=== PATIENT | female | born 1990 | race Caucasian/White ===

== ENCOUNTER 2017-01-15 02:25 | Inpatient (IN) | payer BC, OTHER, MEDICAID ==
[2017-01-15] MEDS ORDERED: Nalbuphine 20 MG/1 ML Amp IVPUSH PRN (03:24)
[2017-01-15] MEDS ORDERED: Sodium Chloride 0.9% 10 ML Syringe FLUSH PRN (03:24)
[2017-01-15] MEDS ORDERED: Oxytocin/Lactated Ringers 10 UNIT/1,000 ML BAG IV SCH (03:30)
[2017-01-15] MEDS ORDERED: Ondansetron 4 MG/2 ML SDV IVPUSH PRN (04:06)
[2017-01-15] MEDS: Lactated Ringers 1,000 ML IV SCH ×4 (04:20→10:06)
[2017-01-15] MEDS ORDERED: fentaNYL 100 MCG/2 ML SDV ONE (04:36)
--- NOTE | 2017-01-15 05:15 | PCM.PREANE ---
Preanesthetic Assessment - Anesthesia/Transfusion/Family Hx Anesthesia History: Prior Anesthesia Without Reaction Family History of Anesthesia Reaction: No Transfusion History: No Prior Transfusion(s) - Review of Systems General: No Symptoms Pulmonary: No Symptoms Cardiovascular: No Symptoms 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: No Symptoms Neurological: No Symptoms Other: Reports: None - Physical Assessment Respiratory Rate: 16 Vital Signs: Last Vital Signs Temp 36.8 C 01/15/17 03:24 Pulse 74 01/15/17 03:24 Resp 16 01/15/17 03:24 BP 121/70 01/15/17 03:24 Pulse Ox Height: 1.6 m Weight: 63.82 kg ASA Class: 2 Mental Status: Alert & Oriented x3 Airway Class: Mallampati = 1 Dentition: Reports: Normal Dentition Thyro-Mental Finger Breadths: 3 Mouth Opening Finger Breadths: 3 ROM/Head Extension: Full Lungs: Clear to Auscultation, Normal Respiratory Effort Cardiovascular: Regular Rate, Regular Rhythm, No Murmurs - Lab Values: Laboratory Last Values WBC 18.83 K/mm3 (3.98-10.04) H 01/15/17 03:47 RBC 4.36 M/mm3 (3.98-5.22) 01/15/17 03:47 Hgb 12.8 gm/L (11.2-15.7) 01/15/17 03:47 Hct 36.8 % (34.1-44.9) 01/15/17 03:47 MCV 84.4 fl (79.4-94.8) 01/15/17 03:47 MCH 29.4 pg (25.6-32.2) 01/15/17 03:47 MCHC 34.8 g/dl (32.2-35.5) 01/15/17 03:47 RDW Std Deviation 43.4 fL (36.4-46.3) 01/15/17 03:47 Plt Count 153 K/mm3 (182-369) L 01/15/17 03:47 MPV 11.0 fl (9.4-12.3) 01/15/17 03:47 Neut % (Auto) 87.5 % (34.0-71.1) H 01/15/17 03:47 Lymph % (Auto) 6.2 % (19.3-51.7) L 01/15/17 03:47 [place] % (Auto) 5.8 % (4.7-12.5) 01/15/17 03:47 Eos % (Auto) 0.1 (0.7-5.8) L 01/15/17 03:47 Baso % (Auto) 0.1 % (0.1-1.2) 01/15/17 03:47 Neut # (Auto) 16.48 K/mm3 (1.56-6.13) H 01/15/17 03:47 Lymph # (Auto) 1.17 K/mm3 (1.18-3.74) L 01/15/17 03:47 [place] # (Auto) 1.09 K/mm3 (0.24-0.36) H 01/15/17 03:47 Eos # (Auto) 0.02 K/mm3 (0.04-0.36) L 01/15/17 03:47 Baso # (Auto) 0.01 K/mm3 (0.01-0.08) 01/15/17 03:47 Manual Slide Review Normal smear 01/15/17 03:47 - Allergies Allergies/Adverse Reactions: Allergies Allergy/AdvReac Type Severity Reaction Status Date / Time No Known Allergies Allergy Verified 05/02/15 09:49 - Anesthesia Plan Pre-Op Medication Ordered: None - Acknowledgements Anesthesia Type Planned: Epidural Pt an Appropriate Candidate for the Planned Anesthesia: Yes Alternatives and Risks of Anesthesia Discussed w Pt/Guardian: Yes Pt/Guardian Understands and Agrees with Anesthesia Plan: Yes PreAnesthesia Questionnaire - Past Health History Medical/Surgical History: Denies Medical/Surgical History 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 History: Reports: GERD 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: - Infectious Disease History Infectious Disease History: Reports: Chicken Pox - Past Surgical History HEENT Surgical History: Reports: Oral Surgery - SUBSTANCE USE Smoking Status *Q: Never Smoker Second Hand Smoke Exposure: No Recreational Drug Use History: No - HOME MEDS Home Medications: Home Meds Vits #93/Iron Fum/FA [ Formula Tablet] 1 tab PO DAILY 01/15/17 [History] - CURRENT (IN HOUSE) MEDS Current Meds: Current Medications Fentanyl/Bupivacaine HCl (Fentanyl/Bupivacaine/Ns 2 Mcg-0.125% 100 Ml) 100 ml EPIDUR ASDIRECTED ERNESTINE Lactated Ringer's (Ringers, Lactated) 1,000 mls @ 100 mls/hr IV ASDIRECTED ERNESTINE Last Admin: 01/15/17 04:20 Dose: 999 mls/hr Oxytocin/Lactated Ringer's (Pitocin In Lr 10 Units/1,000 Ml) 10 unit in 1,000 mls @ 500 mls/hr IV .CONTINUOUS ERNESTINE Nalbuphine HCl (Nubain) 10 mg IVPUSH Q2H PRN PRN Reason: Pain (moderate 4-6) Ondansetron HCl (Zofran) 4 mg IVPUSH Q4HR PRN PRN Reason: Nausea Last Admin: 01/15/17 04:20 Dose: 4 mg Sodium Chloride (Saline Flush) 10 ml FLUSH ASDIRECTED PRN PRN Reason: Keep Vein Open Discontinued Medications Fentanyl (Sublimaze) Confirm Administered Dose 100 mcg .ROUTE .STK-MED ONE Stop: 01/15/17 04:37 Last Admin: 01/15/17 05:01 Dose: 100 mcg
[2017-01-15] MEDS: Bupivacaine/fentaNYL/NS 100 ML Bag EPIDUR SCH ×2 (06:18→10:25)
--- NOTE | 2017-01-15 07:07 | PCM.LDHP ---
L&D History of Present Illness - General Date of Service: 01/15/17 Admit Problem/Dx: Patient Status Order with Admit Dx/Problem 01/15/17 03:24 Patient Status [ADT] Routine Admission Diagnosis/Problem Admission Diagnosis/Problem Normal labor Source of Information: Patient History Limitations: Reports: No Limitations - History of Present Illness Introduction:: 26 y/o a 39 0/7 wks who presents in labor. Was seen in clinic yesterday and found to be 3 cm. Today presented to L&D and on initial exam was 4-5 cm. Doing well now as she completed her epidural recently. 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: : 1 Para: 0 - Past Surgical History HEENT Surgical History: Reports: Myringotomy w Tube(s) Social & Family History - Family History Family Medical History: Noncontributory - Tobacco Use Smoking Status *Q: Never Smoker Second Hand Smoke Exposure: No - Alcohol Use Alcohol Use History: No - Recreational Drug Use Recreational Drug Use: No H&P Review of Systems - Review of Systems: Review Of Systems: See Below General: Reports: No Symptoms Pulmonary: Reports: No Symptoms Cardiovascular: Reports: No Symptoms 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: Reports: No Symptoms Genitourinary: Reports: No Symptoms Musculoskeletal: Reports: No Symptoms L&D Exam - Exam Exam: See Below - Vital Signs Vital Signs: Last Vital Signs Temp 36.8 C 01/15/17 03:24 Pulse 74 01/15/17 03:24 Resp 16 01/15/17 05:14 BP 121/70 01/15/17 03:24 Pulse Ox Weight: 63.82 kg - OB Specific Contraction Intensity: Moderate to Strong Movement: Active Heart Tones: Present Heart Tones per Min: 125 Heart Rate (FHR) Variability: Moderate (6-25 bmp) Presentation: Vertex - Grande Score Grande Score Cervix Position: Anterior Grande Score Consistency: Soft Grande Score Effacement: >80% Grande Score Dilation: > 5 cm Grande Score 's Station: +1, +2 Grande Score Total: 13 - Exam General: Alert, Oriented, Cooperative Lungs: Clear to Auscultation, Normal Respiratory Effort Cardiovascular: Regular Rate, Regular Rhythm GI/Abdominal Exam: Soft, Non-Tender Genitourinary: Normal external exam Extremities: Normal Inspection Skin: Warm, Dry, Intact - Patient Data Lab Results Last 24 hrs: Laboratory Results - last 24 hr 01/15/17 01/15/17 Range/Units 03:47 03:47 WBC 18.83 H (3.98-10.04) K/mm3 RBC 4.36 (3.98-5.22) M/mm3 Hgb 12.8 (11.2-15.7) gm/L Hct 36.8 (34.1-44.9) % MCV 84.4 (79.4-94.8) fl MCH 29.4 (25.6-32.2) pg MCHC 34.8 (32.2-35.5) g/dl RDW Std Deviation 43.4 (36.4-46.3) fL Plt Count 153 L (182-369) K/mm3 MPV 11.0 (9.4-12.3) fl Neut % (Auto) 87.5 H (34.0-71.1) % Lymph % (Auto) 6.2 L (19.3-51.7) % [place] % (Auto) 5.8 (4.7-12.5) % Eos % (Auto) 0.1 L (0.7-5.8) Baso % (Auto) 0.1 (0.1-1.2) % Neut # (Auto) 16.48 H (1.56-6.13) K/mm3 Lymph # (Auto) 1.17 L (1.18-3.74) K/mm3 [place] # (Auto) 1.09 H (0.24-0.36) K/mm3 Eos # (Auto) 0.02 L (0.04-0.36) K/mm3 Baso # (Auto) 0.01 (0.01-0.08) K/mm3 Manual Slide Review Normal smear Blood Type A POSITIVE Gel Antibody Screen Negative Result Diagrams: 01/15/17 03:47 - Problem List (1) 39 weeks gestation of SNOMED Code(s): 48526937 ICD Code: Z3A.39 - 39 WEEKS GESTATION OF Status: Acute Current Visit: Yes (2) Normal labor SNOMED Code(s): 77600892 ICD Code: O80 - ENCOUNTER FOR FULL-TERM UNCOMPLICATED DELIVERY; Z37.9 - OUTCOME OF DELIVERY, UNSPECIFIED Status: Acute Current Visit: Yes Problem List Initiated/Reviewed/Updated: Yes Orders Last 24hrs: Active Orders 24 hr Category Date Time Status Patient Status [ADT] Routine ADT 01/15/17 03:24 Active Activity as Tolerated [RC] PFP Care 01/15/17 03:24 Active Communication Order [RC] ASDIRECTED Care 01/15/17 03:24 Active Heart Tones [RC] ASDIRECTED Care 01/15/17 03:24 Active Notify Provider [RC] PFP Care 01/15/17 03:24 Active Notify Provider [RC] PRN Care 01/15/17 03:24 Active Peripheral IV Care [RC] . DIRECTED Care 01/15/17 03:24 Active Pump Management, Intrathecal [RC] ASDIRECTED Care 01/15/17 03:24 Active Urinary Catheter Assessment [RC] ASDIRECTED Care 01/15/17 03:24 Active Vital Signs [RC] PER UNIT ROUTINE Care 01/15/17 03:24 Active Regular Diet [DIET] Diet 01/15/17 Breakfast Active PATIENT RETYPE [BBK] Routine Lab 01/15/17 03:47 Results TYPE AND SCREEN [BBK] Routine Lab 01/15/17 03:47 Results Bupivacaine/fentaNYL/NS [fentaNYL/Bupivacaine/NS 2 MCG- Med 01/15/17 05:15 Active 0.125% 100 ML] 100 ml EPIDUR ASDIRECTED Lactated Ringers [Ringers, Lactated] 1,000 ml Med 01/15/17 03:30 Active IV ASDIRECTED Nalbuphine [Nubain] Med 01/15/17 03:24 Active 10 mg IVPUSH Q2H PRN Ondansetron [Zofran] Med 01/15/17 04:06 Active 4 mg IVPUSH Q4HR PRN Oxytocin/Lactated Ringers [Pitocin in LR 10 Units/1,000 Med 01/15/17 03:30 Active ML] 10 unit in 1,000 ml IV .CONTINUOUS Sodium Chloride 0.9% [Saline Flush] Med 01/15/17 03:24 Active 10 ml FLUSH ASDIRECTED PRN Electronic Heart Tones Ext w TOCO [WOMSER] Oth 01/15/17 03:24 Ordered Routine Electronic Heart Tones Internal [WOMSER] Per Unit Oth 01/15/17 03:24 Ordered Routine Peripheral IV Insertion Adult [OM.PC] Routine Oth 01/15/17 03:24 Ordered Resuscitation Status Routine Resus Stat 01/15/17 03:24 Ordered Medication Orders Fentanyl/Bupivacaine HCl (Fentanyl/Bupivacaine/Ns 2 Mcg-0.125% 100 Ml) 100 ml EPIDUR ASDIRECTED ERNESTINE Last Admin: 01/15/17 06:18 Dose: 100 ml Lactated Ringer's (Ringers, Lactated) 1,000 mls @ 100 mls/hr IV ASDIRECTED ERNESTINE Last Admin: 01/15/17 06:18 Dose: 500 mls/hr Infusion: 01/15/17 06:17 Dose: 999 mls/hr Admin: 01/15/17 05:16 Dose: 999 mls/hr Infusion: 01/15/17 05:16 Dose: 999 mls/hr Admin: 01/15/17 04:20 Dose: 999 mls/hr Oxytocin/Lactated Ringer's (Pitocin In Lr 10 Units/1,000 Ml) 10 unit in 1,000 mls @ 500 mls/hr IV .CONTINUOUS ERNESTINE Nalbuphine HCl (Nubain) 10 mg IVPUSH Q2H PRN PRN Reason: Pain (moderate 4-6) Ondansetron HCl (Zofran) 4 mg IVPUSH Q4HR PRN PRN Reason: Nausea Last Admin: 01/15/17 04:20 Dose: 4 mg Sodium Chloride (Saline Flush) 10 ml FLUSH ASDIRECTED PRN PRN Reason: Keep Vein Open Assessment/Plan Comment:: 26 y/o at 39 0/7 wks presents for labor * CBC and T&S already ordered * Epidural in place * GBS negative, no need for antibiotics * AROM performed with release of clear fluid * Anticipate Lisa Nickerson MD
[2017-01-15] MEDS ORDERED: Ampicillin 2 GM in Sodium Chloride 0.9% 100 ML IV ONE (10:31)
[2017-01-15] MEDS ORDERED: Acetaminophen 325 MG Tab PO ONE (10:39)
[2017-01-15] MEDS: GENTAMICIN IV ONE (11:10)
[2017-01-15] MEDS: SODIUM CHLORIDE 0.9% IV ONE (11:10)
--- NOTE | 2017-01-15 11:41 | PCM.SN ---
- Free Text/Narrative Note: 1030 Received call from nursing that patient complete and also with temperature of 100.4. This increased on next assessment after 20 minutes to greater than 101.0. Ampicillin and Gentamicin started for presumed chorioamnionitis as FHR baseline also with up shift from 125 to 155. Lisa Nickerson MD
--- NOTE | 2017-01-15 11:42 | PCM.DEL ---
L & D Note - General Info Date of Service: 01/15/17 - Delivery Note Labor: Spontaneous Delivery Outcome: Livebirth Delivery Method: Spontaneous Vaginal Delivery-Single Delivery Mode: Spontaneous Presentation: Right Occiput Anterior (FERNANDO) Nuchal Cord: Present (tight, not able to be reduced) Anesthesia Type: Epidural Amniotic Fluid Description: Meconium Stained (not noted until after delivery of infant) Episiotomy Type: None Laceration: Other (Patient with a hymenal band that did tear wtih delivery) Placenta: Intact, Spontaneous Cord: 3 Vessels Estimated Blood Loss: 250 Resuscitation Needed: Yes : Bulb Syringe, Stimulated, Warmed, [place] Used Score 1 min: 8 Score 5 min: 9 Delivery Comments (Free Text/Narrative):: Patient found to be complete and began pushing. With maternal pushing effort head delivered from an FERNANDO presentation. Tight nuchal cord not able to be reduced and so delivered through. With gentle downward traction the shoulders and body delivered. Infant placed on maternal abdomen. Cord clamped and cut. Cord blood obtained. Placenta allowed time to separate and expelled intact. Hymenal band which was present did tear with deliver. The free ends of this band were clamped, cut, and tied off with sutures of 2-0 vicryl. - Patient Data Vitals - Most Recent: Last Vital Signs Temp 36.8 C 01/15/17 03:24 Pulse 74 01/15/17 03:24 Resp 16 01/15/17 05:14 BP 121/70 01/15/17 03:24 Pulse Ox Weight - Most Recent: 63.82 kg Lab Results Last 24 Hours: Laboratory Results - last 24 hr 01/15/17 01/15/17 Range/Units 03:47 03:47 WBC 18.83 H (3.98-10.04) K/mm3 RBC 4.36 (3.98-5.22) M/mm3 Hgb 12.8 (11.2-15.7) gm/L Hct 36.8 (34.1-44.9) % MCV 84.4 (79.4-94.8) fl MCH 29.4 (25.6-32.2) pg MCHC 34.8 (32.2-35.5) g/dl RDW Std Deviation 43.4 (36.4-46.3) fL Plt Count 153 L (182-369) K/mm3 MPV 11.0 (9.4-12.3) fl Neut % (Auto) 87.5 H (34.0-71.1) % Lymph % (Auto) 6.2 L (19.3-51.7) % [place] % (Auto) 5.8 (4.7-12.5) % Eos % (Auto) 0.1 L (0.7-5.8) Baso % (Auto) 0.1 (0.1-1.2) % Neut # (Auto) 16.48 H (1.56-6.13) K/mm3 Lymph # (Auto) 1.17 L (1.18-3.74) K/mm3 [place] # (Auto) 1.09 H (0.24-0.36) K/mm3 Eos # (Auto) 0.02 L (0.04-0.36) K/mm3 Baso # (Auto) 0.01 (0.01-0.08) K/mm3 Manual Slide Review Normal smear Blood Type A POSITIVE Gel Antibody Screen Negative Med Orders - Current: Current Medications Fentanyl/Bupivacaine HCl (Fentanyl/Bupivacaine/Ns 2 Mcg-0.125% 100 Ml) 100 ml EPIDUR ASDIRECTED [facility] Last Admin: 01/15/17 06:18 Dose: 100 ml Lactated Ringer's (Ringers, Lactated) 1,000 mls @ 100 mls/hr IV ASDIRECTED ERNESTINE Last Admin: 01/15/17 10:06 Dose: 125 mls/hr Oxytocin/Lactated Ringer's (Pitocin In Lr 10 Units/1,000 Ml) 10 unit in 1,000 mls @ 500 mls/hr IV .CONTINUOUS [facility] Gentamicin Sulfate 315 mg/ (Sodium Chloride) 107.875 mls @ 107.875 mls/hr IV ONETIME ONE Stop: 01/15/17 11:59 Nalbuphine HCl (Nubain) 10 mg IVPUSH Q2H PRN PRN Reason: Pain (moderate 4-6) Ondansetron HCl (Zofran) 4 mg IVPUSH Q4HR PRN PRN Reason: Nausea Last Admin: 01/15/17 04:20 Dose: 4 mg Sodium Chloride (Saline Flush) 10 ml FLUSH ASDIRECTED PRN PRN Reason: Keep Vein Open Discontinued Medications Acetaminophen (Tylenol) 650 mg PO NOW ONE Stop: 01/15/17 10:40 Fentanyl (Sublimaze) Confirm Administered Dose 100 mcg .ROUTE .STK-MED ONE Stop: 01/15/17 04:37 Last Admin: 01/15/17 05:01 Dose: 100 mcg Ampicillin Sodium 2 gm/ Sodium (Chloride) 100 mls @ 200 mls/hr IV ONETIME ONE Stop: 01/15/17 11:00 - Problem List & Annotations (1) 39 weeks gestation of SNOMED Code(s): 55762079 Code(s): Z3A.39 - 39 WEEKS GESTATION OF Status: Acute Current Visit: Yes (2) Normal labor SNOMED Code(s): 20577247 Code(s): O80 - ENCOUNTER FOR FULL-TERM UNCOMPLICATED DELIVERY; Z37.9 - OUTCOME OF DELIVERY, UNSPECIFIED Status: Acute Current Visit: Yes (3) Chorioamnionitis SNOMED Code(s): 96210944 Code(s): O41.1290 - CHORIOAMNIONITIS, UNSP TRIMESTER, NOT APPLICABLE OR UNSP Status: Acute Current Visit: Yes Qualifiers: Fetus number: single or unspecified fetus Trimester: third trimester Qualified Code(s): O41.1230 - Chorioamnionitis, third trimester, not applicable or unspecified (4) Vaginal delivery SNOMED Code(s): 426775149 Code(s): O80 - ENCOUNTER FOR FULL-TERM UNCOMPLICATED DELIVERY Status: Acute Current Visit: Yes - Problem List Review Problem List Initiated/Reviewed/Updated: Yes - My Orders Last 24 Hours: My Active Orders 01/15/17 03:24 Activity as Tolerated [RC] PFP Communication Order [RC] ASDIRECTED Heart Tones [RC] ASDIRECTED Notify Provider [RC] PFP Notify Provider [RC] PRN Peripheral IV Care [RC] . DIRECTED Pump Management, Intrathecal [RC] ASDIRECTED Urinary Catheter Assessment [RC] ASDIRECTED Vital Signs [RC] PER UNIT ROUTINE Nalbuphine [Nubain] 10 mg IVPUSH Q2H PRN Sodium Chloride 0.9% [Saline Flush] 10 ml FLUSH ASDIRECTED PRN Electronic Heart Tones Ext w TOCO [WOMSER] Routine Electronic Heart Tones Internal [WOMSER] Per Unit Routine Peripheral IV Insertion Adult [OM.PC] Routine Resuscitation Status Routine 01/15/17 03:30 Lactated Ringers [Ringers, Lactated] 1,000 ml IV ASDIRECTED Oxytocin/Lactated Ringers [Pitocin in LR 10 Units/1,000 ML] 10 unit in 1,000 ml IV .CONTINUOUS 01/15/17 04:06 Ondansetron [Zofran] 4 mg IVPUSH Q4HR PRN 01/15/17 10:06 Patient Status [ADT] Routine 01/15/17 11:00 Gentamicin 315 mg Sodium Chloride 0.9% [Normal Saline] 100 ml IV ONETIME 01/15/17 Breakfast Regular Diet [DIET] - Assessment Assessment:: 26 y/o G1 now P1001 PPD#0 from at 39 0/7 wks gestation - Plan Plan:: * Chorioamnionitis diagnosed in labor - s/p Ampicillin and Gentamicin prior to delivery. No further antibiotics needed * Routine cares * Encourage breast feeding * Discharge home in 2 days Lisa Nickerson MD
[2017-01-15] MEDS ORDERED: Witch Hazel Medicated Pads 100/Jar TOP PRN (13:42)
[2017-01-15] MEDS ORDERED: Benzocaine/Menthol 20%-0.5% Spray 56 GM Canister TOP PRN (13:42)
[2017-01-15] MEDS ORDERED: Docusate Sodium 100 MG Cap PO PRN (13:42)
[2017-01-15] MEDS ORDERED: Acetaminophen 325 MG Tab PO PRN (13:42)
[2017-01-15] MEDS ORDERED: Lanolin 100% Cream 7 GM Tube TOP PRN (13:42)
--- NOTE | 2017-01-15 15:20 | PCM48HPAN ---
Post Anesthesia Note - EVALUATION WITHIN 48HRS OF ANESTHETIC Vital Signs in Normal Range: Yes Patient Participated in Evaluation: Yes Respiratory Function Stable: Yes Airway Patent: Yes Cardiovascular Function Stable: Yes Hydration Status Stable: Yes Pain Control Satisfactory: Yes Nausea and Vomiting Control Satisfactory: Yes Mental Status Recovered: Yes - COMMENTS/OBSERVATIONS Free Text/Narrative:: Danii has been up ambulating. She denies headache, backpain, and/or numbness/ tingling in her legs. No further questions at this time. No complications noted.
[2017-01-15] MEDS: Ibuprofen 600 MG Tab PO PRN (19:16)
[2017-01-15] MEDS ORDERED: Bupivacaine 0.25% 10 ML SDV ONE (22:22)
[2017-01-16] MEDS: Ibuprofen 600 MG Tab PO PRN ×3 (01:33→20:20)
--- NOTE | 2017-01-16 09:47 | PCM.SN ---
- Free Text/Narrative Note: Post Progress Note PPD # 1 Subjective: Doing well overall. Ambulating without difficulty. Lochia minimal. Voiding without difficulty. Tolerating regular diet without any nausea or vomiting. Pain controlled with oral medications. Breast feeding with minimal difficulty. Denies any fevers or chills Objective: Vitals: Last Vital Signs Temp 36.3 C 01/16/17 04:13 Pulse 80 01/16/17 04:13 Resp 14 01/16/17 04:13 BP 123/69 01/16/17 04:13 Pulse Ox 100 01/16/17 04:13 Physical Exam General: Alert and oriented, no acute distress Lungs: Clear to auscultation bilaterally Heart: Regular rate and rhythm Abdomen: Soft, minimal appropriate tenderness, non-distended, fundus midline, nontender, and below the umbilicus Extremities: No edema ASSESSMENT: 26-year-old female G 1 P 1001 s/p normal vaginal delivery PPD #1, complicated by chorioamnionitis PLAN: Doing well Breast feeding with minimal difficulty. Assist as needed Lochia minimal. Continue to monitor for appropriate lochia. Continue routine care Continue to monitor vitals for signs of endometritis Anticipate discharge home tomorrow Joaquin Means MD 9:47 AM 01/16/2017
[2017-01-16] MEDS: GENTAMICIN IV ONE (12:57)
[2017-01-16] MEDS: SODIUM CHLORIDE 0.9% IV ONE (12:57)
--- NOTE | 2017-01-17 08:58 | PCM.SN ---
- Free Text/Narrative Note: Post Progress Note PPD # 2 Subjective: Doing well overall. Ambulating without difficulty. Lochia minimal and decreasing from previous day. Voiding without difficulty. Tolerating regular diet. Pain controlled with oral medications. Breast feeding with minimal difficulty. Denies any fevers or chills. Objective: Vitals: Last Vital Signs Temp 37.1 C 01/16/17 20:27 Pulse 74 01/17/17 04:10 Resp 13 01/17/17 04:10 BP 108/55 L 01/17/17 04:10 Pulse Ox 98 01/17/17 04:10 Physical Exam General: Alert and oriented, no acute distress Lungs: Clear to auscultation bilaterally Heart: Regular rate and rhythm Abdomen: Soft, minimal appropriate tenderness, non-distended, fundus midline, nontender, and below the umbilicus Extremities: No edema ASSESSMENT: 26-year-old female G 1 P 1001 s/p normal vaginal delivery PPD #2, complicated by chorioamnionitis PLAN: Doing well Breast feeding with minimal difficulty. Assist as needed Lochia minimal. Continue to monitor for appropriate lochia. Continue routine care Continue to monitor closely for signs of endometritis including fundal tenderness and fevers Anticipate discharge home today after baby is discharged Joaquin Means MD 8:57 AM 01/17/2017
--- NOTE | 2017-01-17 09:04 | PCM.DCSUM1 ---
Discharge Summary - Hospital Course Free Text/Narrative:: Patient found to be complete and began pushing. With maternal pushing effort head delivered from an FERNANDO presentation. Tight nuchal cord not able to be reduced and so delivered through. With gentle downward traction the shoulders and body delivered. Infant placed on maternal abdomen. Cord clamped and cut. Cord blood obtained. Placenta allowed time to separate and expelled intact. Hymenal band which was present did tear with deliver. The free ends of this band were clamped, cut, and tied off with sutures of 2-0 vicryl. HPI Initial Comments: Patient found to be complete and began pushing. With maternal pushing effort head delivered from an FERNANDO presentation. Tight nuchal cord not able to be reduced and so delivered through. With gentle downward traction the shoulders and body delivered. Infant placed on maternal abdomen. Cord clamped and cut. Cord blood obtained. Placenta allowed time to separate and expelled intact. Hymenal band which was present did tear with deliver. The free ends of this band were clamped, cut, and tied off with sutures of 2-0 vicryl. Brief History: Patient found to be complete and began pushing. With maternal pushing effort head delivered from an FERNANDO presentation. Tight nuchal cord not able to be reduced and so delivered through. With gentle downward traction the shoulders and body delivered. placed on maternal abdomen. Cord clamped and cut. Cord blood obtained. Placenta allowed time to separate and expelled intact. Hymenal band which was present did tear with deliver. The free ends of this band were clamped, cut, and tied off with sutures of 2-0 vicryl. - Discharge Data Discharge Date: 01/17/17 Discharge Disposition: Home, Self-Care 01 Condition: Good - Discharge Diagnosis/Problem(s) (1) 39 weeks gestation of SNOMED Code(s): 16869422 ICD Code: Z3A.39 - 39 WEEKS GESTATION OF Status: Acute Current Visit: Yes (2) Chorioamnionitis SNOMED Code(s): 41930947 ICD Code: O41.1290 - CHORIOAMNIONITIS, UNSP TRIMESTER, NOT APPLICABLE OR UNSP Status: Acute Current Visit: Yes Qualifiers: Fetus number: single or unspecified fetus Trimester: third trimester Qualified Code(s): O41.1230 - Chorioamnionitis, third trimester, not applicable or unspecified (3) Vaginal delivery SNOMED Code(s): 366274274 ICD Code: O80 - ENCOUNTER FOR FULL-TERM UNCOMPLICATED DELIVERY Status: Acute Current Visit: Yes - Patient Summary/Data Complications: None Consults: None Hospital Course: Patient found to be complete and began pushing. With maternal pushing effort head delivered from an FERNANDO presentation. Tight nuchal cord not able to be reduced and so delivered through. With gentle downward traction the shoulders and body delivered. placed on maternal abdomen. Cord clamped and cut. Cord blood obtained. Placenta allowed time to separate and expelled intact. Hymenal band which was present did tear with deliver. The free ends of this band were clamped, cut, and tied off with sutures of 2-0 vicryl. Prior to delivery patient was noted to have maternal fever with tachycardia and was diagnosed with chorioamnionitis and she was given 1 dose of ampicillin and gentamicin. Her course was overall uncomplicated. On the morning of day #2 she reported that she was doing well. She reported that she was emulating without difficulty. Tolerating regular diet without any nausea or vomiting. Voiding without difficulty and her lochia was minimal. She is breast-feeding with minimal difficulty. On day #2 she continued to be doing well without any complications. She was meeting all the above milestones and desired to be discharged home in the afternoon of day #2. She'll follow up with Dr. Lisa Nickerson in 6 weeks or earlier as needed for visit. - Patient Instructions Diet: Regular Diet as Tolerated Activity: As Tolerated Activity, Other: Nothing in the vagina for 6 weeks Driving: May Drive Today Showering/Bathing: May Shower, No Tub Bathing/Swimming Notify Provider of: Fever, Increased Pain, Swelling and Redness, Drainage, Nausea and/or Vomiting - Discharge Plan Home Medications: Home Meds Vits #93/Iron Fum/FA [ Formula Tablet] 1 tab PO DAILY 01/15/17 [History] Acetaminophen [Tylenol] 650 mg PO Q6H PRN tablet 01/17/17 [Rx] Benzocaine/Menthol [Dermoplast Pain Relief [place]] 1 spray TOP ASDIRECTED PRN canister 01/17/17 [Rx] Docusate Sodium [Colace] 100 mg PO BID PRN cap 01/17/17 [Rx] Ibuprofen [IJD: Ibuprofen] 600 mg PO Q6H PRN tablet 01/17/17 [Rx] Lanolin [Lansinoh HPA] 1 applic TOP ASDIRECTED PRN tube 01/17/17 [Rx] Witch Betina [Tucks] 1 pad TOP ASDIRECTED PRN pad 01/17/17 [Rx] Patient Handouts: Vaginal Delivery, Home Care Instructions for Mom, Vaginal Delivery, Care After, Care After Vaginal Delivery Referrals: Lisa Nickerson MD [Primary Care Provider] - (Follow-up in 6 weeks or earlier as needed for routine visit.) - Discharge Summary/Plan Comment DC Time >30 min.: No - Patient Data Vitals - Most Recent: Last Vital Signs Temp 37.1 C 01/16/17 20:27 Pulse 74 01/17/17 04:10 Resp 13 01/17/17 04:10 BP 108/55 L 01/17/17 04:10 Pulse Ox 98 01/17/17 04:10 Weight - Most Recent: 63.82 kg Med Orders - Current: Current Medications Acetaminophen (Tylenol) 650 mg PO Q4H PRN PRN Reason: mild pain or fever Benzocaine/Menthol (Dermoplast Pain Relief [place]) 0 gm TOP ASDIRECTED PRN PRN Reason: Perineal Comfort Measure Last Admin: 01/16/17 01:32 Dose: 1 canister Docusate Sodium (Colace) 100 mg PO BID PRN PRN Reason: Constipation Emollient Ointment (Lansinoh Hpa) 0 gm TOP ASDIRECTED PRN PRN Reason: Sore Nipples Last Admin: 01/15/17 20:15 Dose: 1 tube Ibuprofen (Motrin) 600 mg PO Q6H PRN PRN Reason: Mild pain or fever Last Admin: 01/16/17 20:20 Dose: 600 mg Witch Betina (Tucks) 1 pad TOP ASDIRECTED PRN PRN Reason: Hemorrhoid pain Discontinued Medications Acetaminophen (Tylenol) 650 mg PO NOW ONE Stop: 01/15/17 10:40 Last Admin: 01/15/17 10:50 Dose: 650 mg Fentanyl (Sublimaze) Confirm Administered Dose 100 mcg .ROUTE .STK-MED ONE Stop: 01/15/17 04:37 Last Admin: 01/15/17 05:01 Dose: 100 mcg Fentanyl/Bupivacaine HCl (Fentanyl/Bupivacaine/Ns 2 Mcg-0.125% 100 Ml) 100 ml EPIDUR ASDIRECTED ERNESTINE Last Admin: 01/15/17 10:25 Dose: 100 ml Lactated Ringer's (Ringers, Lactated) 1,000 mls @ 100 mls/hr IV ASDIRECTED ERNESTINE Last Admin: 01/15/17 10:06 Dose: 125 mls/hr Oxytocin/Lactated Ringer's (Pitocin In Lr 10 Units/1,000 Ml) 10 unit in 1,000 mls @ 500 mls/hr IV .CONTINUOUS ERNESTINE Last Admin: 01/15/17 11:30 Dose: 500 mls/hr Ampicillin Sodium 2 gm/ Sodium (Chloride) 100 mls @ 200 mls/hr IV ONETIME ONE Stop: 01/15/17 11:00 Last Admin: 01/15/17 10:41 Dose: 200 mls/hr Gentamicin Sulfate 315 mg/ (Sodium Chloride) 107.875 mls @ 107.875 mls/hr IV ONETIME ONE Stop: 01/15/17 11:59 Last Admin: 01/16/17 12:57 Dose: Not Given Nalbuphine HCl (Nubain) 10 mg IVPUSH Q2H PRN PRN Reason: Pain (moderate 4-6) Ondansetron HCl (Zofran) 4 mg IVPUSH Q4HR PRN PRN Reason: Nausea Last Admin: 01/15/17 04:20 Dose: 4 mg Sodium Chloride (Saline Flush) 10 ml FLUSH ASDIRECTED PRN PRN Reason: Keep Vein Open *Q Meaningful Use (DIS) - VTE *Q VTE Criteria *Q: - Stroke *Q Stroke Criteria *Q: - AMI *Q AMI Criteria *Q:
[2017-01-17] MEDS: Ibuprofen 600 MG Tab PO PRN (11:54)
[2017-01-17 12:14] VITALS: BP 110/59
== END 2017-01-17 17:58 | disposition home or self-care (01) | DRG 560 ==
LOC: JD.OBCHECK 02:25 → JD.OB 02:27 → JD.OBCHECK 03:31 → JD.OB 03:32 → OBSVTOIN 11:25
PROVIDERS: ADMIT Obstetrics & Gynecology; ATTEND Obstetrics & Gynecology
PROC: 10E0XZZ Delivery of Products of Conception, External Approach (ICD-10-PCS; principal; 2017-01-15)
PROC: 10907ZC Drainage of Amniotic Fluid, Therapeutic from Products of Conception, Via Natural or Artificial Opening (ICD-10-PCS; 2017-01-15)
PROC: 00HU33Z Insertion of Infusion Device into Spinal Canal, Percutaneous Approach (ICD-10-PCS; 2017-01-15)
PROC: 3E0R3BZ Introduction of Anesthetic Agent into Spinal Canal, Percutaneous Approach (ICD-10-PCS; 2017-01-15)
DX: O77.0 Labor and delivery complicated by meconium in amniotic fluid (principal); O69.81X0 Labor and delivery complicated by cord around neck, without compression, not applicable or unspecified; O70.0 First degree perineal laceration during delivery; Z3A.39 39 weeks gestation of pregnancy; Z37.0 Single live birth; O41.1230 Chorioamnionitis, third trimester, not applicable or unspecified
CPT/HCPCS: 36415; 51702; 59409; 85025; 86850; 86900; 86901; A9270-GY; J0290; J1580; J2405; J2590; J3010; J7030; J7120

== ENCOUNTER 2017-07-09 07:38 | Emergency (ER) | payer OTHER, BC ==
[2017-07-09] MEDS ORDERED: Sodium Chloride 0.9% 10 ML Syringe FLUSH PRN (07:58)
[2017-07-09] MEDS ORDERED: Sodium Chloride 0.9% 1,000 ML IV STA (07:58)
[2017-07-09] MEDS ORDERED: Ondansetron 4 MG/2 ML SDV IVPUSH ONE (07:58)
--- NOTE | 2017-07-09 08:03 | EDM.PDOC ---
ED HPI GENERAL MEDICAL PROBLEM - General Chief Complaint: 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 Problem Stated Complaint: VOMITING AND DIARRHEA Time Seen by Provider: 07/09/17 07:52 Source of Information: Reports: Patient History Limitations: Reports: No Limitations - History of Present Illness INITIAL COMMENTS - FREE TEXT/NARRATIVE: The patient presents with nausea, vomiting, diarrhea and body aches. This all started early this morning. She has no fever, chills, chest pain, shortness of breath or cough. She does have an upset stomach but no abdominal pain. 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 She did not eat any bad food. She has no dysuria. Onset: Gradual Duration: Hour(s): (2am) Location: Reports: Abdomen Quality: Reports: Other (Upset) Severity: Mild Improves with: Reports: None Worsens with: Reports: None Associated Symptoms: Reports: Nausea/Vomiting. 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: - Infectious Disease History Infectious Disease History: Reports: Chicken Pox - Past Surgical History HEENT Surgical History: Reports: Myringotomy w Tube(s) Social & Family History - Family History Family Medical History: Noncontributory - Tobacco Use Smoking Status *Q: Never Smoker Second Hand Smoke Exposure: No - Recreational Drug Use Recreational Drug Use: No ED ROS GENERAL - Review of Systems Review Of Systems: See Below Constitutional: Reports: No Symptoms HEENT: Reports: No Symptoms Respiratory: Reports: No Symptoms Cardiovascular: Reports: No Symptoms Endocrine: Reports: No Symptoms GI/Abdominal: Reports: Abdominal Pain (upset), Diarrhea, Nausea, Vomiting : Reports: No Symptoms Musculoskeletal: Reports: Muscle Pain ED EXAM, GI/ABD - Physical Exam Exam: See Below Exam Limited By: No Limitations General Appearance: Alert, No Apparent Distress Ears: Normal External Exam Nose: Normal Inspection Head: Atraumatic, Normocephalic Neck: Normal Inspection Respiratory/Chest: No Respiratory Distress, Lungs Clear, Normal Breath Sounds Cardiovascular: Regular Rate, Rhythm, No Edema, No Murmur GI/Abdominal Exam: Soft, Non-Tender, No Organomegaly, No Mass Back Exam: Normal Inspection Extremities: Normal Inspection Course - Vital Signs Last Recorded V/S: Last Vital Signs Temp 97.7 F 07/09/17 07:46 Pulse 106 H 07/09/17 07:46 Resp 17 07/09/17 07:46 BP 107/73 07/09/17 07:46 Pulse Ox 98 07/09/17 07:46 - Orders/Labs/Meds Orders: Active Orders 24 hr Category Date Time Status Peripheral IV Care [RC] . DIRECTED Care 07/09/17 07:58 Active Sodium Chloride 0.9% [Saline Flush] Med 07/09/17 07:58 Active 10 ml FLUSH ASDIRECTED PRN ED Antiemetic Medication Reflex [OM.PC] Stat Oth 07/09/17 07:58 Ordered Peripheral IV Insertion Adult [OM.PC] Stat Oth 07/09/17 07:58 Ordered Medication Orders Sodium Chloride (Saline Flush) 10 ml FLUSH ASDIRECTED PRN PRN Reason: Keep Vein Open Last Admin: 07/09/17 08:15 Dose: 10 ml Labs: Laboratory Tests 07/09/17 07/09/17 07/09/17 Range/Units 07:50 07:50 07:50 WBC 9.32 (3.98-10.04) K/mm3 RBC 5.69 H (3.98-5.22) M/mm3 Hgb 16.0 H (11.2-15.7) gm/L Hct 47.7 H (34.1-44.9) % MCV 83.8 (79.4-94.8) fl MCH 28.1 (25.6-32.2) pg MCHC 33.5 (32.2-35.5) g/dl RDW Std Deviation 41.0 (36.4-46.3) fL Plt Count 183 (182-369) K/mm3 MPV 11.7 (9.4-12.3) fl Neut % (Auto) 87.9 H (34.0-71.1) % Lymph % (Auto) 4.9 L (19.3-51.7) % [place] % (Auto) 6.1 (4.7-12.5) % Eos % (Auto) 0.8 (0.7-5.8) Baso % (Auto) 0.1 (0.1-1.2) % Neut # (Auto) 8.19 H (1.56-6.13) K/mm3 Lymph # (Auto) 0.46 L (1.18-3.74) K/mm3 [place] # (Auto) 0.57 H (0.24-0.36) K/mm3 Eos # (Auto) 0.07 (0.04-0.36) K/mm3 Baso # (Auto) 0.01 (0.01-0.08) K/mm3 Manual Slide Review Normal smear Sodium 137 (136-145) mEq/L Potassium 3.7 (3.5-5.1) mEq/L Chloride 102 (98-107) mEq/L Carbon Dioxide 24 (21-32) mEq/L Anion Gap 14.7 (5-15) BUN 22 H (7-18) mg/dL Creatinine 0.9 (0.55-1.02) mg/dL Est Cr Clr Drug Dosing 78.69 mL/min Estimated GFR (MDRD) > 60 (>60) mL/min BUN/Creatinine Ratio 24.4 H (14-18) Glucose 105 (74-106) mg/dL Calcium 9.0 (8.5-10.1) mg/dL Total Bilirubin 0.8 (0.2-1.0) mg/dL AST 22 (15-37) U/L ALT 29 (14-59) U/L Alkaline Phosphatase 85 (46-116) U/L Total Protein 7.9 (6.4-8.2) g/dl Albumin 4.3 (3.4-5.0) g/dl Globulin 3.6 gm/dL Albumin/Globulin Ratio 1.2 (1-2) Lipase 141 (73-393) U/L HCG, Qual Negative (NEGATIVE) Meds: Medications Generic Name Dose Route Start Last Admin Trade Name Freq PRN Reason Stop Dose Admin Sodium Chloride 10 ml 07/09/17 07:58 07/09/17 08:15 Saline Flush FLUSH 10 ml ASDIRECTED PRN Administration Keep Vein Open Discontinued Medications Generic Name Dose Route Start Last Admin Trade Name Rebecca PRN Reason Stop Dose Admin Hydromorphone HCl 0.5 mg 07/09/17 08:53 07/09/17 09:09 Dilaudid IVPUSH 07/09/17 08:54 0.5 mg ONETIME ONE Administration Sodium Chloride 1,000 mls @ 1,000 mls/hr 07/09/17 07:58 07/09/17 08:10 Normal Saline IV 07/09/17 08:57 1,000 mls/hr .BOLUS STA Administration Ketorolac Tromethamine 30 mg 07/09/17 08:13 07/09/17 08:21 Toradol IVPUSH 07/09/17 08:14 30 mg ONETIME ONE Administration Ondansetron HCl 4 mg 07/09/17 07:58 07/09/17 08:11 Zofran IVPUSH 07/09/17 07:59 4 mg ONETIME ONE Administration - Re-Assessments/Exams Free Text/Narrative Re-Assessment/Exam: 07/09/17 08:03 I ordered an IV NS 1L bolus, zofran 4mg IV, labs and a UA. 07/09/17 09:19 Her Hgb was slightly elevated at 16. Her BUN was elevated at 22. Her Hcg was negative. Her lipase was normal. She had more stomach cramps so I gave her some dilaudid 0.5mg IV. She feels much better. I will discharge her with some zofran. Departure - Departure Time of Disposition: 09:30 Disposition: Home, Self-Care 01 Condition: Good Clinical Impression: Gastroenteritis - Discharge Information Prescriptions: Ondansetron [Zofran ODT] 4 mg PO Q6H PRN #20 tab.dis PRN Reason: Nausea\vomiting Referrals: PCP,None [Primary Care Provider] - Forms: ED Department Discharge, ED Return to Work/School Form Additional Instructions: Take zofran every 6 hours as needed for nausea and vomiting. Drink plenty of fluids. Please return if you are worse. - My Orders Last 24 Hours: My Active Orders 07/09/17 07:58 Peripheral IV Care [RC] . DIRECTED Sodium Chloride 0.9% [Saline Flush] 10 ml FLUSH ASDIRECTED PRN ED Antiemetic Medication Reflex [OM.PC] Stat Peripheral IV Insertion Adult [OM.PC] Stat - Assessment/Plan Last 24 Hours: My Active Orders 07/09/17 07:58 Peripheral IV Care [RC] . DIRECTED Sodium Chloride 0.9% [Saline Flush] 10 ml FLUSH ASDIRECTED PRN ED Antiemetic Medication Reflex [OM.PC] Stat Peripheral IV Insertion Adult [OM.PC] Stat
[2017-07-09] MEDS ORDERED: Ketorolac 30 MG/ML SDV IVPUSH ONE (08:13)
[2017-07-09] MEDS ORDERED: HYDROmorphone 0.5 MG/0.5 ML SYRINGE IVPUSH ONE (08:53)
[2017-07-09 09:43] VITALS: BP 100/71
== END 2017-07-09 09:37 | disposition home or self-care (01) ==
LOC: JD.ED 07:38
DX: K52.9 Noninfective gastroenteritis and colitis, unspecified (principal)
CPT/HCPCS: 36415; 80053; 83690; 84703; 85025; 96361; 96374; 96375; 99284; J1170; J1885; J2405; J7040; J7050

== ENCOUNTER 2017-07-09 13:04 | Emergency (ER) | payer OTHER, BC ==
[2017-07-09 13:14] VITALS: BP 115/71
[2017-07-09] MEDS ORDERED: Sodium Chloride 0.9% 10 ML Syringe FLUSH PRN (13:36)
[2017-07-09] MEDS ORDERED: Sodium Chloride 0.9% 1,000 ML IV STA (13:36)
[2017-07-09] MEDS ORDERED: Ondansetron 4 MG/2 ML SDV IVPUSH ONE (13:36)
[2017-07-09] MEDS ORDERED: HYDROmorphone 0.5 MG/0.5 ML SYRINGE IVPUSH ONE ×2 (13:37→16:13)
[2017-07-09] MEDS ORDERED: Iopamidol 612 MG/ML 100 ML Bottle IVPUSH ONE (14:17)
[2017-07-09] MEDS ORDERED: Diatrizoate Meglumine/Diatrizoate Sodium 37% 120 ML Bottle PO ONE (14:17)
[2017-07-09] MEDS ORDERED: Sodium Chloride 0.9% 10 ML Syringe FLUSH ONE (14:17)
[2017-07-09] MEDS ORDERED: Sodium Chloride 0.9% 1,000 ML IV ONE (15:14)
--- NOTE | 2017-07-09 16:13 | CT ---
CT abdomen and pelvis Technique: Multiple axial sections were obtained from above the dome of the diaphragm inferiorly through the pubic symphysis. Intravenous and oral contrast was utilized. Delayed images were obtained. Comparison: Prior CT abdomen and pelvis exam of 05/22/14. Findings: Visualized lung bases shows nothing acute. Liver shows no focal abnormality. Spleen appears within normal limits. Gallbladder contains no calcified gallstones. Pancreas is within normal limits. Adrenal glands show no nodule. Kidneys show symmetric contrast enhancement without hydronephrosis or mass. Aorta shows no aneurysmal dilatation. No retroperitoneal adenopathy or mesenteric abnormalities are seen. Appendix is felt to be seen and appears within normal limits. No pelvic mass or adenopathy is seen. No free fluid or inflammatory change is seen. Delayed images were obtained through the bladder which shows contrast within the bladder. Bone window settings were reviewed which appear within normal limits for the patient's age. Impression: 1. No abnormality is identified on CT study of the abdomen and pelvis. Nothing acute is appreciated. Diagnostic code #1
--- NOTE | 2017-07-09 16:39 | EDM.PDOC ---
ED HPI GENERAL MEDICAL PROBLEM - General Chief Complaint: Abdominal Pain Stated Complaint: ABDOMINAL PAIN AND FEVER NOT BETTER Time Seen by Provider: 07/09/17 13:28 Source of Information: Reports: Patient History Limitations: Reports: No Limitations - History of Present Illness INITIAL COMMENTS - FREE TEXT/NARRATIVE: The patient was seen earlier this morning in the ER by myself. She had lab work done that looked good. She was found to have a gastroenteritis. I sent her home on zofran. She went home and developed a fever of 102 and more abdominal pain. She also has some nausea and vomiting. She has no chest pain or shortness of breath. She started this morning with abdominal cramps, nausea , vomiting and diarrhea. She had no dysuria. She still has her appendix and gallbladder. Onset: Gradual Duration: Hour(s): (early this morning at 2am) Location: Reports: Abdomen Quality: Reports: Ache Severity: Moderate Improves with: Reports: None Worsens with: Reports: None Associated Symptoms: Reports: Fever/Chills, Nausea/Vomiting. 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 Back Pain Score (Numeric/FACES): 8 - Related Data Allergies Allergy/AdvReac Type Severity Reaction Status Date / Time No Known Allergies Allergy Verified 07/09/17 07:48 Home Meds: Home Meds Hydrocodone/Acetaminophen [Hydrocodon-Acetaminophen 5-325] 1 - 2 each PO Q6HR PRN #20 tablet 07/09/17 [Rx] Ondansetron [Zofran ODT] 4 mg PO Q6H PRN #20 tab.dis 07/09/17 [Rx] Past Medical History - Past Health History Medical/Surgical History: Denies Medical/Surgical History 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 History: Reports: GERD 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: - Infectious Disease History Infectious Disease History: Reports: Chicken Pox - Past Surgical History HEENT Surgical History: Reports: Myringotomy w Tube(s) Social & Family History - Family History Family Medical History: Noncontributory - Tobacco Use Smoking Status *Q: Never Smoker Second Hand Smoke Exposure: No - Caffeine Use Caffeine Use: Reports: None - Recreational Drug Use Recreational Drug Use: No ED ROS GENERAL - Review of Systems Review Of Systems: See Below Constitutional: Reports: Fever HEENT: Reports: No Symptoms Respiratory: Reports: No Symptoms Cardiovascular: Reports: No Symptoms Endocrine: Reports: No Symptoms GI/Abdominal: Reports: Abdominal Pain, Diarrhea, Nausea, Vomiting : Reports: No Symptoms Musculoskeletal: Reports: No Symptoms ED EXAM, GI/ABD - Physical Exam Exam: See Below Exam Limited By: No Limitations General Appearance: Alert, No Apparent Distress Ears: Normal External Exam Nose: Normal Inspection Head: Atraumatic, Normocephalic Neck: Normal Inspection Respiratory/Chest: No Respiratory Distress, Lungs Clear, Normal Breath Sounds Cardiovascular: Regular Rate, Rhythm, No Edema, No Murmur GI/Abdominal Exam: Soft, No Organomegaly, No Mass, Tender (Mild lower abdominal tenderness) Course - Vital Signs Last Recorded V/S: Last Vital Signs Temp 99.8 F 07/09/17 13:11 Pulse 87 07/09/17 13:11 Resp 18 07/09/17 13:11 BP 115/71 07/09/17 13:11 Pulse Ox 100 07/09/17 13:11 - Orders/Labs/Meds Orders: Active Orders 24 hr Category Date Time Status Peripheral IV Care [RC] . DIRECTED Care 07/09/17 13:36 Active UA W/MICROSCOPIC [URIN] Stat Lab 07/09/17 15:40 Ordered Sodium Chloride 0.9% [Saline Flush] Med 07/09/17 13:36 Active 10 ml FLUSH ASDIRECTED PRN ED Antiemetic Medication Reflex [OM.PC] Stat Oth 07/09/17 13:36 Ordered Peripheral IV Insertion Adult [OM.PC] Stat Oth 07/09/17 13:36 Ordered Medication Orders Sodium Chloride (Saline Flush) 10 ml FLUSH ASDIRECTED PRN PRN Reason: Keep Vein Open Last Admin: 07/09/17 14:09 Dose: 10 ml Labs: Laboratory Tests 07/09/17 07/09/17 Range/Units 13:56 15:40 WBC 8.14 (3.98-10.04) K/mm3 RBC 5.42 H (3.98-5.22) M/mm3 Hgb 15.3 (11.2-15.7) gm/L Hct 45.7 H (34.1-44.9) % MCV 84.3 (79.4-94.8) fl MCH 28.2 (25.6-32.2) pg MCHC 33.5 (32.2-35.5) g/dl RDW Std Deviation 41.0 (36.4-46.3) fL Plt Count 166 L (182-369) K/mm3 MPV 11.5 (9.4-12.3) fl Neut % (Auto) 93.9 H (34.0-71.1) % Lymph % (Auto) 2.5 L (19.3-51.7) % [place] % (Auto) 3.4 L (4.7-12.5) % Eos % (Auto) 0 L (0.7-5.8) Baso % (Auto) 0.0 L (0.1-1.2) % Neut # (Auto) 7.64 H (1.56-6.13) K/mm3 Lymph # (Auto) 0.20 L (1.18-3.74) K/mm3 [place] # (Auto) 0.28 (0.24-0.36) K/mm3 Eos # (Auto) 0.00 L (0.04-0.36) K/mm3 Baso # (Auto) 0.00 L (0.01-0.08) K/mm3 Manual Slide Review Normal smear Urine Color Yellow (Yellow) Urine Appearance Clear (Clear) Urine pH 5.5 (5.0-8.0) Ur Specific [place] 1.015 (1.005-1.030) Urine Protein Negative (Negative) Urine Glucose (UA) Negative (Negative) Urine Ketones Negative (Negative) Urine Occult Blood Negative (Negative) Urine Nitrite Negative (Negative) Urine Bilirubin Negative (Negative) Urine Urobilinogen 0.2 (0.2-1.0) Ur Leukocyte Esterase Negative (Negative) Urine RBC 0-5 (0-5) /hpf Urine WBC 0-5 (0-5) /hpf Ur Epithelial Cells 0-5 (0-5) /hpf Urine Bacteria Not seen (FEW) /hpf Urine Mucus Not seen (FEW) /hpf Meds: Medications Generic Name Dose Route Start Last Admin Trade Name Freq PRN Reason Stop Dose Admin Sodium Chloride 10 ml 07/09/17 13:36 07/09/17 14:09 Saline Flush FLUSH 10 ml ASDIRECTED PRN Administration Keep Vein Open Discontinued Medications Generic Name Dose Route Start Last Admin Trade Name Freq PRN Reason Stop Dose Admin Diatrizoate Meglum/Diatrizoate Sod 90 ml 07/09/17 14:17 07/09/17 15:30 Gastrografin 37% PO 07/09/17 14:18 90 ml ONETIME ONE Administration Hydromorphone HCl 0.5 mg 07/09/17 13:37 07/09/17 14:10 Dilaudid IVPUSH 07/09/17 13:38 0.5 mg ONETIME ONE Administration Hydromorphone HCl 0.5 mg 07/09/17 16:13 07/09/17 16:19 Dilaudid IVPUSH 07/09/17 16:14 0.5 mg ONETIME ONE Administration Sodium Chloride 1,000 mls @ 1,000 mls/hr 07/09/17 13:36 07/09/17 14:03 Normal Saline IV 07/09/17 14:35 1,000 mls/hr .BOLUS STA Administration Sodium Chloride 1,000 mls @ 1,000 mls/hr 07/09/17 15:14 07/09/17 16:15 Normal Saline IV 07/09/17 16:13 1,000 mls/hr ONETIME ONE Administration Iopamidol 100 ml 07/09/17 14:17 07/09/17 15:30 Isovue-300 (61%) IVPUSH 07/09/17 14:18 100 ml ONETIME ONE Administration Ondansetron HCl 4 mg 07/09/17 13:36 07/09/17 14:04 Zofran IVPUSH 07/09/17 13:37 4 mg ONETIME ONE Administration Sodium Chloride 10 ml 07/09/17 14:17 07/09/17 15:30 Saline Flush FLUSH 07/09/17 14:18 10 ml ONETIME ONE Administration - Re-Assessments/Exams Free Text/Narrative Re-Assessment/Exam: 07/09/17 16:42 I ordered an IV NS 1L bolus, zofran 4mg IV, dilaudid 0.5mg IV, labs and a CT of her abdomen and pelvis. Her CBC looks good with a normal WBC. Her UA shows no UTI. The CT of her abdomen and pelvis shows no abnormality is identified on CT study of the abdomen and pelvis. Nothing acute is appreciated. Departure - Departure Time of Disposition: 16:50 Disposition: Home, Self-Care 01 Condition: Good Clinical Impression: Gastroenteritis - Discharge Information Prescriptions: Hydrocodone/Acetaminophen [Hydrocodon-Acetaminophen 5-325] 1 - 2 each PO Q6HR PRN #20 tablet PRN Reason: Pain Referrals: PCP,None [Primary Care Provider] - Katya Moore MD [Physician] - 1 Week Forms: ED Department Discharge Additional Instructions: Take the zofran as needed for nausea and vomiting. Take the hydrocodone as needed for pain. Drink plenty of fluids and get some rest. Please return if you are worse. - My Orders Last 24 Hours: My Active Orders 07/09/17 13:36 Peripheral IV Care [RC] . DIRECTED Sodium Chloride 0.9% [Saline Flush] 10 ml FLUSH ASDIRECTED PRN ED Antiemetic Medication Reflex [OM.PC] Stat Peripheral IV Insertion Adult [OM.PC] Stat 07/09/17 15:40 UA W/MICROSCOPIC [URIN] Stat - Assessment/Plan Last 24 Hours: My Active Orders 07/09/17 13:36 Peripheral IV Care [RC] . DIRECTED Sodium Chloride 0.9% [Saline Flush] 10 ml FLUSH ASDIRECTED PRN ED Antiemetic Medication Reflex [OM.PC] Stat Peripheral IV Insertion Adult [OM.PC] Stat 07/09/17 15:40 UA W/MICROSCOPIC [URIN] Stat
== END 2017-07-09 17:17 | disposition home or self-care (01) ==
LOC: JD.ED 13:04
DX: K52.9 Noninfective gastroenteritis and colitis, unspecified (principal)
CPT/HCPCS: 36415; 74177; 81001; 85025; 96361; 96374; 96375; 96376; 99284; J1170; J2405; J7040; J7050; Q9963; Q9967

== ENCOUNTER 2017-09-17 13:10 | Emergency (ER) | payer BC, MEDICAID, OTHER ==
[2017-09-17] MEDS ORDERED: Sodium Chloride 0.9% 1,000 ML IV ONE ×2 (14:09→15:41)
[2017-09-17] MEDS ORDERED: Ondansetron 4 MG/2 ML SDV IVPUSH ONE (14:09)
[2017-09-17] MEDS ORDERED: Sodium Chloride 0.9% 10 ML Syringe FLUSH PRN (14:25)
[2017-09-17] MEDS ORDERED: Ketorolac 30 MG/ML SDV IVPUSH ONE (14:25)
--- NOTE | 2017-09-17 14:30 | EDM.PDOC ---
<Justina Cano - Last Filed: 09/17/17 14:45> ED HPI GENERAL MEDICAL PROBLEM - General Chief Complaint: 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 Problem Stated Complaint: VOMITING AND NAUSEA Time Seen by Provider: 09/17/17 14:10 Source of Information: Reports: Patient History Limitations: Reports: No Limitations - History of Present Illness INITIAL COMMENTS - FREE TEXT/NARRATIVE: Patient comes in today for complaint of nausea, vomiting, and diarrhea. Patient had 3-4 episodes of watery diarrhea last night and has had 10 episodes of vomiting starting at 0700 today. Patient states that nothing alleviates her symptoms and movement makes her feel worse. She tried taking Zofran at home at 0800 this morning, but she continued vomiting. She last ate at 1700 yesterday. She has been able to sip Pedialyte today without vomiting. Associated symptoms include chills, fatigue, weakness, myalgias, headache, and slight epigastric tenderness. Patient denies fever, rashes, sore throat, cough, or heartburn. Patient denies recent travel, insect bites, exposure to unfamiliar animals, antibiotic use within the past 6 months, or known ill contacts. Patient went camping 5-7 days ago at [employer] but denies being near any body of water or swimming. Patient's son is in daycare where many of the children have been experiencing a GI illness recently. Onset: Sudden Onset Date: 09/16/17 Duration: Getting Worse Location: Reports: Abdomen Quality: Reports: Ache Severity: Moderate Improves with: Reports: None Worsens with: Reports: Eating, Movement Associated Symptoms: Reports: Headaches, Loss of Appetite, Nausea/Vomiting, Weakness. 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 Denies : Fever, Diaphoresis HEENT: Denies: Throat Pain Respiratory: Denies: Shortness of Breath, Cough Cardiovascular: Denies: Chest Pain, Edema GI/Abdominal: Reports: Abdominal Pain, Diarrhea, Decreased Appetite, Nausea, Vomiting. Denies: Black Stool, Bloody Stool, Constipation, Distension, Flatus, Hematemesis, Hematochezia, Melena, Mucous in Stool : Reports: No Symptoms Skin: Reports: No Symptoms. Denies: Jaundice, Pallor, Diaphoresis, Rash Neurological: Reports: No Symptoms ED EXAM, GI/ABD - Physical Exam Exam: See Below Exam Limited By: No Limitations General Appearance: Alert, WD/WN, No Apparent Distress Eyes: Bilateral: EOMI Throat/Mouth: Normal Inspection, Normal Oropharynx Head: Atraumatic, Normocephalic Respiratory/Chest: No Respiratory Distress, Lungs Clear, Normal Breath Sounds, No Accessory Muscle Use, Chest Non-Tender Cardiovascular: Normal Peripheral Pulses, Regular Rate, Rhythm, No Edema, No Murmur, No Rub GI/Abdominal Exam: Normal Bowel Sounds, Soft, Non-Tender, No Distention. No: Guarding, Rigid, Rebound Neurological: Alert, Oriented Skin Exam: Warm, Dry, Intact, Normal Color, No Rash Course - Vital Signs Last Recorded V/S: Last Vital Signs Temp 99.3 F 09/17/17 16:45 Pulse 80 09/17/17 16:45 Resp 16 09/17/17 16:45 BP 108/68 09/17/17 16:45 Pulse Ox 100 09/17/17 16:45 Orthostatic Blood Pressure [ 120/84 Standing] Orthostatic Blood Pressure [ 124/77 Sitting] Orthostatic Blood Pressure [ 115/69 Supine] - Orders/Labs/Meds Orders: Active Orders 24 hr Category Date Time Status Peripheral IV Care [RC] . DIRECTED Care 09/17/17 14:25 Active Peripheral IV Insertion Adult [OM.PC] Routine Oth 09/17/17 14:25 Ordered Labs: Laboratory Tests 09/17/17 09/17/17 Range/Units 14:35 14:35 WBC 11.29 H (3.98-10.04) K/mm3 RBC 5.20 (3.98-5.22) M/mm3 Hgb 14.5 (11.2-15.7) gm/L Hct 42.8 (34.1-44.9) % MCV 82.3 (79.4-94.8) fl MCH 27.9 (25.6-32.2) pg MCHC 33.9 (32.2-35.5) g/dl RDW Std Deviation 41.4 (36.4-46.3) fL Plt Count 265 (182-369) K/mm3 MPV 11.1 (9.4-12.3) fl Neut % (Auto) 73.7 H (34.0-71.1) % Lymph % (Auto) 19.1 L (19.3-51.7) % [place] % (Auto) 6.5 (4.7-12.5) % Eos % (Auto) 0.3 L (0.7-5.8) Baso % (Auto) 0.2 (0.1-1.2) % Neut # (Auto) 8.33 H (1.56-6.13) K/mm3 Lymph # (Auto) 2.16 (1.18-3.74) K/mm3 [place] # (Auto) 0.73 H (0.24-0.36) K/mm3 Eos # (Auto) 0.03 L (0.04-0.36) K/mm3 Baso # (Auto) 0.02 (0.01-0.08) K/mm3 Sodium 141 (136-145) mEq/L Potassium 4.0 (3.5-5.1) mEq/L Chloride 104 (98-107) mEq/L Carbon Dioxide 24 (21-32) mEq/L Anion Gap 17.0 H (5-15) BUN 7 (7-18) mg/dL Creatinine 0.9 (0.55-1.02) mg/dL Est Cr Clr Drug Dosing 78.69 mL/min Estimated GFR (MDRD) > 60 (>60) mL/min BUN/Creatinine Ratio 7.8 L (14-18) Glucose 86 (74-106) mg/dL Calcium 9.6 (8.5-10.1) mg/dL Magnesium 2.0 (1.8-2.4) mg/dl Total Bilirubin 0.7 (0.2-1.0) mg/dL AST 26 (15-37) U/L ALT 24 (14-59) U/L Alkaline Phosphatase 78 (46-116) U/L Total Protein 8.2 (6.4-8.2) g/dl Albumin 4.6 (3.4-5.0) g/dl Globulin 3.6 gm/dL Albumin/Globulin Ratio 1.3 (1-2) Meds: Medications Discontinued Medications Generic Name Dose Route Start Last Admin Trade Name Freq PRN Reason Stop Dose Admin Sodium Chloride 1,000 mls @ 999 mls/hr 09/17/17 14:09 09/17/17 14:37 Normal Saline IV 09/17/17 15:09 999 mls/hr ONETIME ONE Administration Sodium Chloride 1,000 mls @ 999 mls/hr 09/17/17 15:41 09/17/17 15:46 Normal Saline IV 09/17/17 16:41 999 mls/hr ONETIME ONE Administration Ketorolac Tromethamine 30 mg 09/17/17 14:25 09/17/17 14:48 Toradol IVPUSH 09/17/17 14:26 30 mg ONETIME ONE Administration Ondansetron HCl 4 mg 09/17/17 14:09 09/17/17 14:40 Zofran IVPUSH 09/17/17 14:10 4 mg ONETIME ONE Administration Sodium Chloride 10 ml 09/17/17 14:25 09/17/17 14:35 Saline Flush FLUSH 10 ml ASDIRECTED PRN Administration Keep Vein Open Departure - Departure Disposition: Home, Self-Care 01 Clinical Impression: Gastroenteritis - Discharge Information Instructions: Viral Gastroenteritis, Adult, [id number] Referrals: Sonali Larsen PA-C [Primary Care Provider] - Forms: ED Department Discharge Additional Instructions: Clear fluids today. Make sure you are drinking plenty of fluids. may advance to a bland diet tomorrow. [place] diet recommendations include bread, rice, applesauce, toast, bananas, etc. Recommend starting a probiotic. These are available [id number]. Follow-up with your primary care provider next week if not much better. Please return to the ER if your symptoms change or worsen. - My Orders Last 24 Hours: My Active Orders 09/17/17 14:25 Peripheral IV Care [RC] . DIRECTED Peripheral IV Insertion Adult [OM.PC] Routine - Assessment/Plan Last 24 Hours: My Active Orders 09/17/17 14:25 Peripheral IV Care [RC] . DIRECTED Peripheral IV Insertion Adult [OM.PC] Routine <Hoda Thompson - Last Filed: 09/17/17 20:32> ED HPI GENERAL MEDICAL PROBLEM - General Source of Information: Reports: Patient History Limitations: Reports: No Limitations - History of Present Illness INITIAL COMMENTS - FREE TEXT/NARRATIVE: I have seen he patient and agree with the HPI, ROS and PE as documented by MARJORIE Tellez. 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: - Infectious Disease History Infectious Disease History: Reports: Chicken Pox - Past Surgical History HEENT Surgical History: Reports: Myringotomy w Tube(s) Social & Family History - Family History Family Medical History: Noncontributory - Tobacco Use Smoking Status *Q: Never Smoker - Caffeine Use Caffeine Use: Reports: None - Recreational Drug Use Recreational Drug Use: No Course - Orders/Labs/Meds Labs: Laboratory Tests 09/17/17 09/17/17 Range/Units 14:35 14:35 WBC 11.29 H (3.98-10.04) K/mm3 RBC 5.20 (3.98-5.22) M/mm3 Hgb 14.5 (11.2-15.7) gm/L Hct 42.8 (34.1-44.9) % MCV 82.3 (79.4-94.8) fl MCH 27.9 (25.6-32.2) pg MCHC 33.9 (32.2-35.5) g/dl RDW Std Deviation 41.4 (36.4-46.3) fL Plt Count 265 (182-369) K/mm3 MPV 11.1 (9.4-12.3) fl Neut % (Auto) 73.7 H (34.0-71.1) % Lymph % (Auto) 19.1 L (19.3-51.7) % [place] % (Auto) 6.5 (4.7-12.5) % Eos % (Auto) 0.3 L (0.7-5.8) Baso % (Auto) 0.2 (0.1-1.2) % Neut # (Auto) 8.33 H (1.56-6.13) K/mm3 Lymph # (Auto) 2.16 (1.18-3.74) K/mm3 [place] # (Auto) 0.73 H (0.24-0.36) K/mm3 Eos # (Auto) 0.03 L (0.04-0.36) K/mm3 Baso # (Auto) 0.02 (0.01-0.08) K/mm3 Sodium 141 (136-145) mEq/L Potassium 4.0 (3.5-5.1) mEq/L Chloride 104 (98-107) mEq/L Carbon Dioxide 24 (21-32) mEq/L Anion Gap 17.0 H (5-15) BUN 7 (7-18) mg/dL Creatinine 0.9 (0.55-1.02) mg/dL Est Cr Clr Drug Dosing 78.69 mL/min Estimated GFR (MDRD) > 60 (>60) mL/min BUN/Creatinine Ratio 7.8 L (14-18) Glucose 86 (74-106) mg/dL Calcium 9.6 (8.5-10.1) mg/dL Magnesium 2.0 (1.8-2.4) mg/dl Total Bilirubin 0.7 (0.2-1.0) mg/dL AST 26 (15-37) U/L ALT 24 (14-59) U/L Alkaline Phosphatase 78 (46-116) U/L Total Protein 8.2 (6.4-8.2) g/dl Albumin 4.6 (3.4-5.0) g/dl Globulin 3.6 gm/dL Albumin/Globulin Ratio 1.3 (1-2) - Re-Assessments/Exams Free Text/Narrative Re-Assessment/Exam: 09/17/17 15:38 I have seen the patient and agree with the HPI, ROS and PE as documented by Marjorie Tellez. 09/17/17 15:47 Checked on the patient. Nausea and headache improved. Will give second bolus of fluids and plan to discharge. Likely a viral gastroenteritis causing her problems. Reviewed the labs with her. 09/17/17 16:38 Patient feeling improved at this time. Offered nausea medication to take home, zofran or topical phenergran and declined. Discharge instructions as documented. Departure - Departure Time of Disposition: 16:39 Condition: Fair - Discharge Information *PRESCRIPTION DRUG MONITORING PROGRAM REVIEWED*: No *COPY OF PRESCRIPTION DRUG MONITORING REPORT IN PATIENT MIGUEL: No
[2017-09-17 17:37] VITALS: BP 108/68
== END 2017-09-17 16:50 | disposition home or self-care (01) ==
LOC: JD.ED 13:10
DX: K52.9 Noninfective gastroenteritis and colitis, unspecified (principal)
CPT/HCPCS: 36415; 80053; 83735; 85025; 96361; 96374; 96375; 99284; J1885; J2405; J7040; J7050

== ENCOUNTER 2018-03-18 02:28 | Emergency (ER) | payer BC, OTHER ==
[2018-03-18 02:37] VITALS: BP 139/84
[2018-03-18] MEDS ORDERED: Metoclopramide 10 MG/2 ML SDV IVPUSH ONE (02:53)
[2018-03-18] MEDS ORDERED: Ketorolac 30 MG/ML SDV IVPUSH SCH (03:00)
[2018-03-18] MEDS ORDERED: Dextrose 5%-Lactated Ringers 1,000 ML IV SCH (03:00)
--- NOTE | 2018-03-18 03:01 | EDM.PDOC ---
ED HPI GENERAL MEDICAL PROBLEM - General Chief Complaint: 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 Problem Stated Complaint: FLU AND ABDOMINAL PAIN Time Seen by Provider: 03/18/18 02:53 Source of Information: Reports: Patient History Limitations: Reports: No Limitations - History of Present Illness INITIAL COMMENTS - FREE TEXT/NARRATIVE: 27-year-old female presents to the ED due to intractable nausea and vomiting for the last 24 hours. Also associated diarrhea large volume stool loss is approximately 8 times over the last 24 hours. Sepsis is been bilious without blood. Nothing much as stay down and all over the last 24 hours. Associated low- grade fever and diffuse upper abdominal pain up underneath her rib cage into her flanks. Intermittent lower abdominal cramping pain. Of note 2 of her children have been ill with the same illness over the last 4-5 days. She thinks she may be running a low-grade fever and has had some chills. Feels weak lightheaded and dizzy upon standing. Onset: Sudden Onset Date: 03/17/18 Duration: Hour(s): (Illness started about 24 hours ago midnight day before yesterday) Location: Reports: Abdomen Quality: Reports: Other (Intermittent lower abdominal cramping pain but a deep dull aching discomfort in epigastrium and up underneath her ribs and into her back suggestive of mild metabolic acidosis) Severity: Moderate Improves with: Reports: None Worsens with: Reports: None Context: Reports: Sick Contact (2 children have been sick with the same). Denies: Activity, Exercise, Trauma ( illness in the last 5 days), Other Associated Symptoms: Reports: Fever/Chills, Loss of Appetite, Malaise, Nausea/ Vomiting (Intractable blood 1214 times over the last 24 hours). Denies: No Other Symptoms, Confusion, Chest Pain, Cough, cough w sputum, Diaphoresis, Headaches (Feels chilled at times not sure if she's had a fever), Rash, Seizure , Shortness of Breath, Syncope Treatments DEVELOPMENT TECHNICAL LEAD: Reports: Other (see below) (Nothing will stay down) Bilateral Upper Abdomen Pain Score (Numeric/FACES): 6 - Related Data Allergies Allergy/AdvReac Type Severity Reaction Status Date / Time No Known Allergies Allergy Verified 03/18/18 02:35 Home Meds: Home Meds Ondansetron [Zofran] 4 mg BUCCAL Q6H PRN #10 tab 03/18/18 [Rx] Past Medical History - Past Health History Medical/Surgical History: Denies Medical/Surgical History 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 History: Reports: GERD 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: - Infectious Disease History Infectious Disease History: Reports: Chicken Pox - Past Surgical History HEENT Surgical History: Reports: Myringotomy w Tube(s) Social & Family History - Family History Family Medical History: Noncontributory - Tobacco Use Smoking Status *Q: Never Smoker - Caffeine Use Caffeine Use: Reports: Tea - Recreational Drug Use Recreational Drug Use: No - Living Situation & Occupation Living situation: Reports: Single Occupation: Employed ED ROS GENERAL - Review of Systems Review Of Systems: See Below Constitutional: Reports: Fever, Chills, Malaise, Weakness, Fatigue, Decreased Appetite HEENT: Reports: No Symptoms Respiratory: Reports: No Symptoms Cardiovascular: Reports: No Symptoms Endocrine: Reports: No Symptoms, Fatigue GI/Abdominal: Reports: Abdominal Pain (Upper abdominal pain from vomiting also pressure up underneath signs her ribs.), Anorexia, Diarrhea (Tract was nausea and vomiting 24 hours a large volume stool loss is over the last 24 hours), Nausea, Vomiting : Reports: No Symptoms Musculoskeletal: Reports: Muscle Pain Skin: Reports: No Symptoms Neurological: Reports: Dizziness, Weakness Psychiatric: Reports: No Symptoms (With standing) Hematologic/Lymphatic: Reports: No Symptoms Immunologic: Reports: No Symptoms ED EXAM, GI/ABD - Physical Exam Exam: See Below Exam Limited By: No Limitations General Appearance: Alert, WD/WN, Mild Distress Eyes: Bilateral: Normal Appearance Throat/Mouth: Other Head: Atraumatic (Tongue is still moist), Normocephalic Neck: Normal Inspection, Supple, Non-Tender, Full Range of Motion. No: Lymphadenopathy (L), Lymphadenopathy (R) Respiratory/Chest: No Respiratory Distress, Lungs Clear, Normal Breath Sounds, No Accessory Muscle Use, Chest Non-Tender Cardiovascular: Normal Peripheral Pulses, Regular Rate, Rhythm, No Edema, No Gallop, No Murmur, No Rub GI/Abdominal Exam: Soft, No Distention, Tender, Abnormal Bowel Sounds (Pulse ox is a mildly hyperactive in all 4 quadrants.). No: Rebound (I tenderness in the epigastrium and suprapubically with no rebound or guarding), Mass Back Exam: Normal Inspection, Full Range of Motion. No: CVA Tenderness (L), CVA Tenderness (R) Extremities: Normal Inspection, Normal Range of Motion, Non-Tender, No Pedal Edema Neurological: Alert, Oriented, CN II-XII Intact, Normal Cognition, Normal Gait Psychiatric: Normal Affect, Normal Mood Skin Exam: Warm, Dry, Intact, Normal Color, No Rash Course - Vital Signs Last Recorded V/S: Last Vital Signs Temp 36.8 C 03/18/18 02:35 Pulse 85 03/18/18 02:35 Resp 16 03/18/18 02:35 BP 139/84 03/18/18 02:35 Pulse Ox 98 03/18/18 02:35 - Orders/Labs/Meds Labs: Laboratory Tests 03/18/18 03/18/18 03/18/18 Range/Units 02:45 02:45 02:45 WBC 8.15 (3.98-10.04) K/mm3 RBC 4.95 (3.98-5.22) M/mm3 Hgb 13.6 (11.2-15.7) gm/L Hct 40.4 (34.1-44.9) % MCV 81.6 (79.4-94.8) fl MCH 27.5 (25.6-32.2) pg MCHC 33.7 (32.2-35.5) g/dl RDW Std Deviation 39.8 (36.4-46.3) fL Plt Count 235 (182-369) K/mm3 MPV 11.4 (9.4-12.3) fl Neutrophils % (Manual) 67 H (40-60) % Band Neutrophils % 1 (0-10) % Lymphocytes % (Manual) 24 (20-40) % Atypical Lymphs % 0 % Monocytes % (Manual) 5 (2-10) % Eosinophils % (Manual) 3 (0.7-5.8) % Basophils % (Manual) 0 L (0.1-1.2) Hypersegmented Neuts Rare Platelet Estimate Adequate Plt Morphology Comment Normal RBC Morph Comment Normal Sodium 142 (136-145) mEq/L Potassium 3.9 (3.5-5.1) mEq/L Chloride 107 (98-107) mEq/L Carbon Dioxide 25 (21-32) mEq/L Anion Gap 13.9 (5-15) BUN 16 (7-18) mg/dL Creatinine 1.0 (0.55-1.02) mg/dL Est Cr Clr Drug Dosing 71.14 mL/min Estimated GFR (MDRD) > 60 (>60) mL/min BUN/Creatinine Ratio 16.0 (14-18) Glucose 104 (74-106) mg/dL Calcium 9.1 (8.5-10.1) mg/dL Total Bilirubin 0.3 (0.2-1.0) mg/dL AST 20 (15-37) U/L ALT 19 (14-59) U/L Alkaline Phosphatase 53 (46-116) U/L Total Protein 7.4 (6.4-8.2) g/dl Albumin 3.6 (3.4-5.0) g/dl Globulin 3.8 gm/dL Albumin/Globulin Ratio 1.0 (1-2) Lipase 132 (73-393) U/L Ketones 0.17 (0.0-0.3) mM Meds: Medications Discontinued Medications Generic Name Dose Route Start Last Admin Trade Name Freq PRN Reason Stop Dose Admin Dextrose/Lactated Ringer's 1,000 mls @ 999 mls/hr 03/18/18 03:00 03/18/18 03: 05 Dextrose 5%-Lactated Ringers IV 999 mls/hr ASDIRECTED ERNESTINE Administration Ketorolac Tromethamine 30 mg 03/18/18 03:00 03/18/18 03:06 Toradol IVPUSH 30 mg ONETIME ERNESTINE Administration Metoclopramide HCl 7.5 mg 03/18/18 02:53 03/18/18 03:05 Reglan IVPUSH 03/18/18 02:54 7.5 mg ONETIME ONE Administration - Radiology Interpretation Free Text/Narrative:: 27-year-old female presents to the ED with acute onset of nausea vomiting and diarrhea over the last 24 hours. His predated by 2 of her children being sick with similar type illness over the last 4-5 days. Her son was only sick for about 24 hours. Clinically she is mildly volume depleted. Plan IV D5 Ringer's lactate at open. Given Reglan 7.5 mg IV to arrest vomiting Toradol 30 mg IV for abdominal pain relief. To be done to include serum ketones - Re-Assessments/Exams Free Text/Narrative Re-Assessment/Exam: 03/18/18 03:36 White count is normal at 8.15. Differential pending hemoglobin is 13.6 with hematocrit of 40.4. White count 235,000. Sodium 142 with potassium of 3.9. Chloride was supple with a bicarbonate 25. Anion gap is 13.9. BUNs 16 with a running of 1.0. Glucose 14 with a calcium of 9.1. Bilirubin is 0.3. AST is 20 with an ALT of 19. Alk phosphatase is 53. Lipase 132 03/18/18 04:01 she has completed a liter of IV fluids and is feeling better. Nausea is gone. She will be discharged home on Zofran 4 mg sublingually every 4- 6 hours when necessary for nausea relief. Clear fluid diet. Departure - Departure Time of Disposition: 04:02 Disposition: Home, Self-Care 01 Condition: Fair Clinical Impression: Viral gastroenteritis - Discharge Information *PRESCRIPTION DRUG MONITORING PROGRAM REVIEWED*: Not Applicable *COPY OF PRESCRIPTION DRUG MONITORING REPORT IN PATIENT MIGUEL: Not Applicable Prescriptions: Ondansetron [Zofran] 4 mg BUCCAL Q6H PRN #10 tab PRN Reason: nausea or vomiting Instructions: Viral Gastroenteritis, Adult, [id number] Referrals: PCP,None [Primary Care Provider] - Forms: ED Department Discharge, ED Return to Work/School Form Additional Instructions: Evaluation the emergency room today in regards to development of acute viral gastroenteritis with nausea vomiting and diarrhea. Is to be appears to have been contracted from one of your children. Lab work proves that it is viral in origin. No major metabolic abdomen maladies were identified. Mild dehydration was evident. Treated with a liter of IV fluids containing sugar. You were given medication Reglan 7.5 mg IV for nausea relief. Toradol 30 mg IV for relief of abdominal discomfort. Treatment at home is to use Zofran 4 mg under the tongue every 4-6 hours necessary for relief of nausea or vomiting. Just taking a tablet at about 8:00 this morning. Clear fluids today such as Gatorade/Powerade ideally 5 ounces sipped per hour. When hungry try soda crackers and advance to toast with some jam etc. Gel is okay at any time. Popsicles locate any time. If toast as tolerated may advance to broth soups such as turkey rice/chicken noodle etc. Right all dairy products and no apple juice or grape juice until stools are formed back up. Note given to excuse her from the workplace yesterday and today due to current illness.
== END 2018-03-18 04:10 | disposition home or self-care (01) ==
LOC: JD.ED 02:28
DX: A08.4 Viral intestinal infection, unspecified (principal)
CPT/HCPCS: 36415; 80053; 82009; 83690; 85007; 85027; 96361; 96374; 96375; 99284; J1885; J2765; J7042; 99283

== ENCOUNTER 2020-06-12 06:57 | Inpatient (IN) | payer BC ==
[2020-06-12] MEDS ORDERED: Nalbuphine 10 MG/1 ML Vial IVPUSH PRN (07:04)
[2020-06-12] MEDS ORDERED: Sodium Chloride 0.9% 10 ML Syringe FLUSH PRN (07:04)
--- NOTE | 2020-06-12 07:04 | PCM.LDHP ---
L&D History of Present Illness - General Date of Service: 06/12/20 Admit Problem/Dx: Admission Diagnosis/Problem Admission Diagnosis/Problem Source of Information: Patient History Limitations: Reports: No Limitations - History of Present Illness Introduction:: Patient is a 30 y/o at 38 2/7 wks who presents for IOL for IUGR diagnosed this week with baby noted at 8%. MFM conducted scan due to previously noted PAC's in clinic and on L&D triage assessment. Patient herself is doing well today. No significant contractions. 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 (Approximate): Psychiatric History: Reports: Anxiety - Infectious Disease History Infectious Disease History: Reports: Chicken Pox - Past Surgical History HEENT Surgical History: Reports: Myringotomy w Tube(s) (bilateral), Oral Surgery (wisdom teeth extraction) Female Surgical History: Reports: Other (See Below) (Ureteral repair (hx of vesicoureteral reflux)) Social & Family History - Family History Family Medical History: No Pertinent Family History - Tobacco Use Tobacco Use Status *Q: Never Tobacco User - Caffeine Use Caffeine Use: Reports: None - Alcohol Use Alcohol Use History: No - Recreational Drug Use Recreational Drug Use: No - Living Situation & Occupation Living situation: Reports: Single, with Significant Other (Boyfriend), with Family (Son) 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[employer]) H&P Review of Systems - Review of Systems: Review Of Systems: See Below General: Reports: No Symptoms Pulmonary: Reports: No Symptoms Cardiovascular: Reports: No Symptoms 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: Reports: No Symptoms Genitourinary: Reports: No Symptoms Musculoskeletal: Reports: No Symptoms Neurological: Reports: No Symptoms L&D Exam - Exam Exam: See Below - OB Specific Contraction Intensity: Irritability Movement: Active Heart Tones: Present Heart Tones per Min: 140 Heart Rate (FHR) Variability: Moderate (6-25 bmp) Presentation: Vertex - Grande Score Grande Score Cervix Position: Midposition Grande Score Consistency: Medium Grande Score Effacement: 51-70% Grande Score Dilation: 1-2 cm Grande Score Infant's Station: -2 Grande Score Total: 6 - Exam General: Alert, Oriented, Cooperative Lungs: Clear to Auscultation, Normal Respiratory Effort Cardiovascular: Regular Rate, Regular Rhythm GI/Abdominal Exam: Soft, Non-Tender Genitourinary: Normal external exam Extremities: Normal Inspection Skin: Warm, Dry, Intact - Patient Data Result Diagrams: 06/12/20 07:15 - Problem List (1) 38 weeks gestation of SNOMED Code(s): 83206829 ICD Code: Z3A.38 - 38 WEEKS GESTATION OF Status: Acute Current Visit: Yes (2) growth restriction SNOMED Code(s): 90450663 ICD Code: [id number] - Status: Acute Current Visit: Yes (3) Premature atrial contractions of fetus affecting management of SNOMED Code(s): 674417865, 328890651 ICD Code: O36.8390 - MATERN CARE FOR ABNLT FETL HRT RATE OR RHYM, UNSP TRI, UNSP Status: Acute Current Visit: Yes (4) COVID-19 affecting in third trimester SNOMED Code(s): 947253993, 766498626 ICD Code: O98.513 - OTHER VIRAL DISEASES COMPLICATING , THIRD TR IMESTER; U07.1 - COVID-19 Status: Acute Current Visit: Yes Problem List Initiated/Reviewed/Updated: Yes Assessment/Plan Comment:: IOL due to growth restrictions, measuring 8% * Labs done * GBS negative * Pitocin and AROM for IOL * Pain management pre patient preference * Anticipate * Peds aware of previous findings of PAC's
[2020-06-12] MEDS ORDERED: Oxytocin/Lactated Ringers 10 UNIT/1,000 ML BAG IV SCH ×2 (07:15)
[2020-06-12] MEDS: Lactated Ringers 1,000 ML IV SCH ×2 (07:49→14:40)
[2020-06-12] MEDS ORDERED: ePHEDrine 50 MG/ML SDV IVPUSH PRN (08:00)
[2020-06-12] MEDS ORDERED: Bupivacaine/fentaNYL/NS 100 ML Bag EPIDUR SCH (08:00)
[2020-06-12] MEDS ORDERED: fentaNYL 100 MCG/2 ML SDV EPIDUR PRN (08:00)
[2020-06-12] MEDS ORDERED: Ondansetron 4 MG/2 ML SDV IVPUSH PRN (08:00)
--- NOTE | 2020-06-12 08:02 | PCM.PREANE ---
Preanesthetic Assessment - Procedure Proposed Procedure: Epidural - Anesthesia/Transfusion/Family Hx Anesthesia History: Prior Anesthesia Without Reaction Family History of Anesthesia Reaction: No Transfusion History: No Prior Transfusion(s) Intubation History: Unknown - Review of Systems General: No Symptoms Pulmonary: No Symptoms Cardiovascular: No Symptoms 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: No Symptoms (GERD) Neurological: No Symptoms Other: Reports: None, Easy Bruising, Anxiety - Physical Assessment NPO Status Date: 06/12/20 NPO Status Time: 08:30 Vital Signs: HR:90 B/P: 110/72 Resp: 20 Sat: 99% Temp: 99.3 Height: 1.57 m Weight: 65.771 kg ASA Class: 2 Mental Status: Alert & Oriented x3 Airway Class: Mallampati = 2 Dentition: Reports: Normal Dentition (left lower lip piercing noted.), Caries Thyro-Mental Finger Breadths: 3 Mouth Opening Finger Breadths: 3 ROM/Head Extension: Full Lungs: Clear to Auscultation, Normal Respiratory Effort Cardiovascular: Regular Rate, Regular Rhythm, No Murmurs - Lab Values: Laboratory Last Values WBC 12.84 K/mm3 (3.98-10.04) H 06/12/20 07:15 RBC 4.00 M/mm3 (3.98-5.22) 06/12/20 07:15 Hgb 11.3 gm/dl (11.2-15.7) D 06/12/20 07:15 Hct 34.7 % (34.1-44.9) 06/12/20 07:15 MCV 86.8 fl (79.4-94.8) D 06/12/20 07:15 MCH 28.3 pg (25.6-32.2) 06/12/20 07:15 MCHC 32.6 g/dl (32.2-35.5) 06/12/20 07:15 RDW Std Deviation 44.0 fL (36.4-46.3) 06/12/20 07:15 Plt Count 149 K/mm3 (182-369) L 06/12/20 07:15 MPV 11.5 fl (9.4-12.3) 06/12/20 07:15 All labs reviewed and noted and within acceptable ranges to proceed with epidural if desired. 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: Psychiatric History: Reports: Anxiety (untreated) - Infectious Disease History Infectious Disease History: Reports: Chicken Pox - Past Surgical History HEENT Surgical History: Reports: Myringotomy w Tube(s) (bilateral), Oral Surgery (wisdom teeth extraction) - HOME MEDS Home Medications: Home Meds Ondansetron [Zofran ODT] 4 mg PO Q6H PRN #20 tab.dis 04/08/18 [Rx] Sertraline [Zoloft] 50 mg PO DAILY 04/08/18 [History] - CURRENT (IN HOUSE) MEDS Current Meds: Current Medications Oxytocin/Lactated Ringer's (Pitocin In Lr 10 Units/1,000 Ml) 10 unit in 1,000 mls @ 12 mls/hr IV TITRATE ERNESTINE; Protocol Last Admin: 06/12/20 07:53 Dose: 2 munits/min, 12 mls/hr Documented by: Oxytocin/Lactated Ringer's (Pitocin In Lr 10 Units/1,000 Ml) 10 unit in 1,000 mls @ 500 mls/hr IV .CONTINUOUS ERNESTINE Lactated Ringer's (Ringers, Lactated) 1,000 mls @ 40 mls/hr IV ASDIRECTED ERNESTINE Last Admin: 06/12/20 07:49 Dose: 40 mls/hr Documented by: Nalbuphine HCl (Nalbuphine 10 Mg/1 Ml Vial) 10 mg IVPUSH Q2H PRN PRN Reason: Pain Ondansetron HCl (Ondansetron 4 Mg/2 Ml Sdv) 4 mg IVPUSH Q4H PRN PRN Reason: Nausea/Vomiting Sodium Chloride (Sodium Chloride 0.9% 10 Ml Syringe) 10 ml FLUSH ASDIRECTED PRN PRN Reason: Keep Vein Open
[2020-06-12] MEDS: Ondansetron 4 MG/2 ML SDV IVPUSH PRN ×2 (08:04→14:51)
--- NOTE | 2020-06-12 18:53 | PCM.DEL ---
L & D Note - General Info Date of Service: 06/12/20 - Delivery Note Labor: Induced by ARM, Induced by Oxytocin Delivery Outcome: Livebirth Infant Delivery Method: Spontaneous Vaginal Delivery-Single Infant Delivery Mode: Spontaneous Presentation: Right Occiput Posterior (ROP) Nuchal Cord: Present (x3) Anesthesia Type: Epidural Amniotic Fluid Description: Clear Episiotomy Type: None Laceration: 2nd Degree Suture type: Vicryl Suture size: 2-0 Placenta: Intact, Spontaneous Cord: 3 Vessels Estimated Blood Loss: 200 Resuscitation Needed: Yes [place]: Bulb Syringe, Stimulated, Warmed, [place] Used, Warmer Used Delivery Comments (Free Text/Narrative):: Patient found to be complete and began pushing. With maternal pushing effort head delivered from ROP presentation. Tight nuchal present and so with gentle downward traction the shoulders and body delivered. Triple nuchal then reduced. Infant placed on maternal abdomen. Cord clamped and cut. Cord blood obtained. Placenta allowed time to separate and expelled intact. Inspect ion of perineum showed 2nd degree repaired with a 2-0 Vicryl in the typical fashion - General Info Date of Service: 06/12/20 - Patient Data Vitals - Most Recent: Last Vital Signs Temp 37.4 C 06/12/20 07:35 Pulse 90 06/12/20 14:30 Resp 16 06/12/20 07:35 BP 112/45 L 06/12/20 14:30 Pulse Ox 100 06/12/20 07:35 Weight - Most Recent: 64.41 kg I&O - Last 24 Hours: Intake & Output 06/12/20 06/12/20 06/12/20 06:59 14:59 22:59 Intake Total 200 1000 Balance 200 1000 - Problem List & Annotations (1) 38 weeks gestation of SNOMED Code(s): 18410591 Code(s): Z3A.38 - 38 WEEKS GESTATION OF Status: Acute Current Visit: Yes (2) growth restriction SNOMED Code(s): 71223816 Code(s): RXQ5133 - Status: Acute Current Visit: Yes (3) Premature atrial contractions of fetus affecting management of SNOMED Code(s): 109831668, 821265208 Code(s): O36.8390 - MATERN CARE FOR ABNLT FETL HRT RATE OR RHYM, UNSP TRI, UNSP Status: Acute Current Visit: Yes (4) COVID-19 affecting in third trimester SNOMED Code(s): 014469634, 495406446 Code(s): O98.513 - OTHER VIRAL DISEASES COMPLICATING , THIRD TRIMESTER; U07.1 - COVID-19 Status: Acute Current Visit: Yes (5) Vaginal delivery SNOMED Code(s): 834864138 Code(s): O80 - ENCOUNTER FOR FULL-TERM UNCOMPLICATED DELIVERY Status: Acute Current Visit: No - Problem List Review Problem List Initiated/Reviewed/Updated: Yes - My Orders Last 24 Hours: My Active Orders 06/12/20 Breakfast Regular Diet [DIET] 06/12/20 07:04 Patient Status [ADT] Routine Communication Order [RC] ASDIRECTED Communication Order [RC] ASDIRECTED Communication Order [RC] ASDIRECTED Notify Provider [RC] ASDIRECTED Notify Provider [RC] PRN Peripheral IV Care [RC] . DIRECTED Vital Signs [RC] ASDIRECTED Nalbuphine [Nubain] 10 mg IVPUSH Q2H PRN Ondansetron [Zofran] 4 mg IVPUSH Q4H PRN Sodium Chloride 0.9% [Saline Flush] 10 ml FLUSH ASDIRECTED PRN Electronic Heart Tones Internal [WOMSER] Per Unit Routine Peripheral IV Insertion Adult [OM.PC] Routine Resuscitation Status Routine 06/12/20 07:15 HEP C VIRUS AB [REF] Stat Lactated Ringers [Ringers, Lactated] 1,000 ml IV ASDIRECTED Oxytocin/Lactated Ringers [Pitocin in LR 10 Units/1,000 ML] 10 unit in 1,000 ml IV .CONTINUOUS Oxytocin/Lactated Ringers [Pitocin in LR 10 Units/1,000 ML] 10 unit in 1,000 ml IV TITRATE - Assessment Assessment:: PPD#0 - Plan Plan:: * Routine cares * Breast feeding * Discharge home in 1-2 days
[2020-06-12] MEDS ORDERED: Benzocaine/Menthol 20%-0.5% Spray 56 GM Canister TOP PRN (19:58)
[2020-06-12] MEDS ORDERED: Witch Hazel Medicated Pads 40/Jar TOP PRN (19:58)
[2020-06-12] MEDS ORDERED: Acetaminophen 325 MG Tab PO PRN (19:58)
[2020-06-12] MEDS ORDERED: Lidocaine 1.5% with EPINEPHrine 1:200,000 5 ML Amp ONE (20:00)
[2020-06-12] MEDS: Ibuprofen 600 MG Tab PO PRN (21:06)
[2020-06-13] MEDS: Ibuprofen 600 MG Tab PO PRN ×3 (03:50→23:24)
--- NOTE | 2020-06-13 07:19 | PCM.PNPP ---
- General Info Date of Service: 06/13/20 Functional Status: Reports: Pain Controlled, Tolerating Diet, Ambulating, Urinating - Review of Systems General: Reports: No Symptoms Pulmonary: Reports: No Symptoms Cardiovascular: Reports: No Symptoms 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: Reports: No Symptoms Musculoskeletal: Reports: No Symptoms Neurological: Reports: No Symptoms - Patient Data Vital Signs - Most Recent: Last Vital Signs Temp 36.7 C 06/13/20 03:34 Pulse 59 L 06/13/20 03:34 Resp 14 06/13/20 03:34 BP 103/73 06/13/20 03:34 Pulse Ox 100 06/13/20 03:34 Weight - Most Recent: 64.41 kg I&O - Last 24 Hours: Intake & Output 06/12/20 06/13/20 06/13/20 22:59 06:59 14:59 Intake Total 1000 1000 Output Total 525 Balance 475 1000 Lab Results - Last 24 Hours: Laboratory Results - last 24 hr 06/12/20 06/12/20 06/12/20 Range/Units 07:15 07:15 07:15 WBC 12.84 H (3.98-10.04) K/mm3 RBC 4.00 (3.98-5.22) M/mm3 Hgb 11.3 D (11.2-15.7) gm/dl Hct 34.7 (34.1-44.9) % MCV 86.8 D (79.4-94.8) fl MCH 28.3 (25.6-32.2) pg MCHC 32.6 (32.2-35.5) g/dl RDW Std Deviation 44.0 (36.4-46.3) fL Plt Count 149 L (182-369) K/mm3 MPV 11.5 (9.4-12.3) fl RPR Non-reactive (NONREACTIVE) SARS-CoV-2 RNA (CELESTE) (NEGATIVE) Blood Type A POSITIVE Gel Antibody Screen Negative 06/12/20 Range/Units 07:50 WBC (3.98-10.04) K/mm3 RBC (3.98-5.22) M/mm3 Hgb (11.2-15.7) gm/dl Hct (34.1-44.9) % MCV (79.4-94.8) fl MCH (25.6-32.2) pg MCHC (32.2-35.5) g/dl RDW Std Deviation (36.4-46.3) fL Plt Count (182-369) K/mm3 MPV (9.4-12.3) fl RPR (NONREACTIVE) SARS-CoV-2 RNA (CELESTE) Positive H (NEGATIVE) Blood Type Gel Antibody Screen Med Orders - Current: Current Medications Acetaminophen (Acetaminophen 325 Mg Tab) 650 mg PO Q4H PRN PRN Reason: mild pain or fever Benzocaine/Menthol (Benzocaine/Menthol 20%-0.5% [place] 56 Gm Canister) 0 gm TOP ASDIRECTED PRN PRN Reason: Perineal Comfort Measure Last Admin: 06/12/20 21:05 Dose: 1 container Documented by: Ibuprofen (Ibuprofen 600 Mg Tab) 600 mg PO Q6H PRN PRN Reason: Mild pain or fever Last Admin: 06/13/20 03:50 Dose: 600 mg Documented by: Bernardino Moffett (Bernardino Moffett Medicated Pads 40/Jar) 1 pad TOP ASDIRECTED PRN PRN Reason: Perineal Comfort Measure Last Admin: 06/12/20 21:05 Dose: 1 tub Documented by: Discontinued Medications Ephedrine Sulfate (Ephedrine 50 Mg/Ml Sdv) 5 mg IVPUSH ASDIRECTED PRN PRN Reason: Hypotension Fentanyl (Fentanyl 100 Mcg/2 Ml Sdv) 100 mcg EPIDUR Q3H PRN PRN Reason: Pain Last Admin: 06/12/20 14:13 Dose: 100 mcg Documented by: Fentanyl/Bupivacaine HCl (Bupivacaine/Fentanyl/Ns 100 Ml Bag) 100 ml EPIDUR ASDIRECTED ERNESTINE Last Admin: 06/12/20 14:14 Dose: 100 ml Documented by: Oxytocin/Lactated Ringer's (Pitocin In Lr 10 Units/1,000 Ml) 10 unit in 1,000 mls @ 12 mls/hr IV TITRATE ERNESTINE; Protocol Last Titration: 06/12/20 16:39 Dose: 20 munits/min, 120 mls/hr Documented by: Oxytocin/Lactated Ringer's (Pitocin In Lr 10 Units/1,000 Ml) 10 unit in 1,000 mls @ 500 mls/hr IV .CONTINUOUS ERNESTINE Last Admin: 06/12/20 18:50 Dose: 500 mls/hr Documented by: Lactated Ringer's (Ringers, Lactated) 1,000 mls @ 40 mls/hr IV ASDIRECTED ERNESTINE Last Admin: 06/12/20 14:40 Dose: 40 mls/hr Documented by: Miscellaneous Medication (Phenylephrine Hcl In 0.9% Nacl 1 Mg/10 Ml Syringe) 0.1 mg IVPUSH Q10M PRN PRN Reason: Hypotension Nalbuphine HCl (Nalbuphine 10 Mg/1 Ml Vial) 10 mg IVPUSH Q2H PRN PRN Reason: Pain Ondansetron HCl (Ondansetron 4 Mg/2 Ml Sdv) 4 mg IVPUSH Q4H PRN PRN Reason: Nausea/Vomiting Last Admin: 06/12/20 14:51 Dose: 4 mg Documented by: Ondansetron HCl (Ondansetron 4 Mg/2 Ml Sdv) 4 mg IVPUSH ONETIME PRN PRN Reason: Nausea/Vomiting Sodium Chloride (Sodium Chloride 0.9% 10 Ml Syringe) 10 ml FLUSH ASDIRECTED PRN PRN Reason: Keep Vein Open - Infant Interaction Infant Disposition, : [place] in Room with Family Infant Interaction: Holding Infant Feeding: Breastfed ; Nursed Well Support Person: Significant Other - Recovery Exam Fundal Tone: Firm Fundal Level: 1 Fingerbreadths Below Umbilicus Fundal Placement: Midline Lochia Amount: Small, Moderate Lochia Color: Rubra/Red Perineum Description: Other (see below) Other Perinuem Description: 2nd degree repaired. Episiotomy/Laceration: Approximated Bladder Status: Voiding Urinary Elimination: Voided - Exam General: Alert, Oriented, Cooperative GI/Abdominal Exam: Soft, Non-Tender Extremities: Normal Inspection Skin: Warm, Dry, Intact - Problem List & Annotations (1) 38 weeks gestation of SNOMED Code(s): 33199141 Code(s): Z3A.38 - 38 WEEKS GESTATION OF Status: Acute Current Visit: Yes (2) growth restriction SNOMED Code(s): 11200740 Code(s): JYB4786 - Status: Acute Current Visit: Yes (3) Premature atrial contractions of fetus affecting management of SNOMED Code(s): 096539613, 190304779 Code(s): O36.8390 - MATERN CARE FOR ABNLT FETL HRT RATE OR RHYM, UNSP TRI, UNSP Status: Acute Current Visit: Yes (4) COVID-19 affecting in third trimester SNOMED Code(s): 370490397, 994007888 Code(s): O98.513 - OTHER VIRAL DISEASES COMPLICATING , THIRD TRIMESTER; U07.1 - COVID-19 Status: Acute Current Visit: Yes (5) Vaginal delivery SNOMED Code(s): 351669331 Code(s): O80 - ENCOUNTER FOR FULL-TERM UNCOMPLICATED DELIVERY Status: Acute Current Visit: No - Problem List Review Problem List Initiated/Reviewed/Updated: Yes - My Orders Last 24 Hours: My Active Orders 06/12/20 07:04 Resuscitation Status Routine 06/12/20 07:15 HEP C VIRUS AB [REF] Stat 06/12/20 Dinner Regular Diet [DIET] 06/12/20 19:58 Acetaminophen [TylenoL] 650 mg PO Q4H PRN Benzocaine/Menthol [Dermoplast Pain Relief [place]] See Dose Instructions TOP ASDIRECTED PRN Ibuprofen [Motrin] 600 mg PO Q6H PRN witch Cristhian [Tucks] 1 pad TOP ASDIRECTED PRN Heat Therapy [OM.PC] PRN 06/12/20 19:58 Activity as Tolerated [RC] PER UNIT ROUTINE Vital Signs [RC] ,,, Assess Lochia [WOMSER] Per Unit Routine Assess Uterine Involution [WOMSER] Per Unit Routine Breast Pump [WOMSER] Per Unit Routine Ice Therapy [OM.PC] Per Unit Routine Perineal Care [OM.PC] Per Unit Routine Peripheral IV Discontinue [OM.PC] Routine Sitz Bath [OM.PC] Per Unit Routine 06/13/20 19:58 Heat Therapy [OM.PC] PRN - Assessment Assessment:: PPD#1 - Plan Plan:: * Routine cares * Breast feeding * Discharge home tomorrow
--- NOTE | 2020-06-13 07:39 | PCM48HPAN ---
Post Anesthesia Note - EVALUATION WITHIN 48HRS OF ANESTHETIC Vital Signs in Normal Range: Yes Patient Participated in Evaluation: Yes Respiratory Function Stable: Yes Airway Patent: Yes Cardiovascular Function Stable: Yes Hydration Status Stable: Yes Pain Control Satisfactory: Yes Nausea and Vomiting Control Satisfactory: Yes Mental Status Recovered: Yes Vital Signs: Last Vital Signs Temp 36.7 C 06/13/20 03:34 Pulse 59 L 06/13/20 03:34 Resp 14 06/13/20 03:34 BP 103/73 06/13/20 03:34 Pulse Ox 100 06/13/20 03:34
--- NOTE | 2020-06-14 06:56 | PCM.PNPP ---
- General Info Date of Service: 06/14/20 Functional Status: Reports: Pain Controlled, Tolerating Diet, Ambulating, Urinating - Review of Systems General: Reports: No Symptoms Pulmonary: Reports: No Symptoms Cardiovascular: Reports: No Symptoms 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: Reports: No Symptoms Genitourinary: Reports: No Symptoms Musculoskeletal: Reports: No Symptoms - Patient Data Vital Signs - Most Recent: Last Vital Signs Temp 36.5 C 06/14/20 03:16 Pulse 52 L 06/14/20 03:16 Resp 18 06/13/20 20:35 BP 104/60 06/14/20 03:16 Pulse Ox 99 06/14/20 03:16 Weight - Most Recent: 64.41 kg I&O - Last 24 Hours: Intake & Output 06/13/20 06/13/20 06/14/20 14:59 22:59 06:59 Intake Total 400 0 Balance 400 0 Med Orders - Current: Current Medications Acetaminophen (Acetaminophen 325 Mg Tab) 650 mg PO Q4H PRN PRN Reason: mild pain or fever Last Admin: 06/13/20 14:28 Dose: 650 mg Documented by: Benzocaine/Menthol (Benzocaine/Menthol 20%-0.5% [place] 56 Gm Canister) 0 gm TOP ASDIRECTED PRN PRN Reason: Perineal Comfort Measure Last Admin: 06/12/20 21:05 Dose: 1 container Documented by: Ibuprofen (Ibuprofen 600 Mg Tab) 600 mg PO Q6H PRN PRN Reason: Mild pain or fever Last Admin: 06/13/20 23:24 Dose: 600 mg Documented by: Bernardino Moffett (Bernardino Moffett Medicated Pads 40/Jar) 1 pad TOP ASDIRECTED PRN PRN Reason: Perineal Comfort Measure Last Admin: 06/12/20 21:05 Dose: 1 tub Documented by: Discontinued Medications Ephedrine Sulfate (Ephedrine 50 Mg/Ml Sdv) 5 mg IVPUSH ASDIRECTED PRN PRN Reason: Hypotension Fentanyl (Fentanyl 100 Mcg/2 Ml Sdv) 100 mcg EPIDUR Q3H PRN PRN Reason: Pain Last Admin: 06/12/20 14:13 Dose: 100 mcg Documented by: Fentanyl/Bupivacaine HCl (Bupivacaine/Fentanyl/Ns 100 Ml Bag) 100 ml EPIDUR ASDIRECTED ERNESTINE Last Admin: 06/12/20 14:14 Dose: 100 ml Documented by: Oxytocin/Lactated Ringer's (Pitocin In Lr 10 Units/1,000 Ml) 10 unit in 1,000 mls @ 12 mls/hr IV TITRATE ERNESTINE; Protocol Last Titration: 06/12/20 16:39 Dose: 20 munits/min, 120 mls/hr Documented by: Oxytocin/Lactated Ringer's (Pitocin In Lr 10 Units/1,000 Ml) 10 unit in 1,000 mls @ 500 mls/hr IV .CONTINUOUS ERNESTINE Last Admin: 06/12/20 18:50 Dose: 500 mls/hr Documented by: Lactated Ringer's (Ringers, Lactated) 1,000 mls @ 40 mls/hr IV ASDIRECTED ERNESTINE Last Admin: 06/12/20 14:40 Dose: 40 mls/hr Documented by: Lidocaine/Epinephrine (Lidocaine 1.5% With Epinephrine 1:200,000 5 Ml Amp) 5 ml .ROUTE .[facility] ONE Stop: 06/12/20 20:01 Miscellaneous Medication (Phenylephrine Hcl In 0.9% Nacl 1 Mg/10 Ml Syringe) 0.1 mg IVPUSH Q10M PRN PRN Reason: Hypotension Nalbuphine HCl (Nalbuphine 10 Mg/1 Ml Vial) 10 mg IVPUSH Q2H PRN PRN Reason: Pain Ondansetron HCl (Ondansetron 4 Mg/2 Ml Sdv) 4 mg IVPUSH Q4H PRN PRN Reason: Nausea/Vomiting Last Admin: 06/12/20 14:51 Dose: 4 mg Documented by: Ondansetron HCl (Ondansetron 4 Mg/2 Ml Sdv) 4 mg IVPUSH ONETIME PRN PRN Reason: Nausea/Vomiting Sodium Chloride (Sodium Chloride 0.9% 10 Ml Syringe) 10 ml FLUSH ASDIRECTED PRN PRN Reason: Keep Vein Open - Interaction Infant Disposition, : [place] in Room with Family Infant Interaction: Holding Feeding: Breastfed ; Nursed Well Support Person: Significant Other - Recovery Exam Fundal Tone: Firm Fundal Level: 3 Fingerbreadths Below Umbilicus Fundal Placement: Midline Lochia Amount: Small Lochia Color: Rubra/Red Perineum Description: Other (see below) Other Perinuem Description: 2nd degree repaired. Episiotomy/Laceration: Approximated Bladder Status: Voiding Urinary Elimination: Voided - Exam General: Alert, Oriented, Cooperative GI/Abdominal Exam: Soft, Non-Tender Extremities: Normal Inspection Skin: Warm, Dry, Intact - Problem List & Annotations (1) 38 weeks gestation of SNOMED Code(s): 80680867 Code(s): Z3A.38 - 38 WEEKS GESTATION OF Status: Acute Current Visit: Yes (2) growth restriction SNOMED Code(s): 77506931 Code(s): RYN5436 - Status: Acute Current Visit: Yes (3) Premature atrial contractions of fetus affecting management of SNOMED Code(s): 226491866, 697193214 Code(s): O36.8390 - MATERN CARE FOR ABNLT FETL HRT RATE OR RHYM, UNSP TRI, UNSP Status: Acute Current Visit: Yes (4) COVID-19 affecting in third trimester SNOMED Code(s): 784631530, 978451069 Code(s): O98.513 - OTHER VIRAL DISEASES COMPLICATING , THIRD TRIMESTER; U07.1 - COVID-19 Status: Acute Current Visit: Yes (5) Vaginal delivery SNOMED Code(s): 217053571 Code(s): O80 - ENCOUNTER FOR FULL-TERM UNCOMPLICATED DELIVERY Status: Acute Current Visit: No - Problem List Review Problem List Initiated/Reviewed/Updated: Yes - My Orders Last 24 Hours: My Active Orders 06/13/20 19:58 Heat Therapy [OM.PC] PRN 06/14/20 06:56 Ready for Discharge [RC] PER UNIT ROUTINE - Assessment Assessment:: PPD#2 - Plan Plan:: * Routine cares * Breast feeding * Discharge home today
--- NOTE | 2020-06-14 06:57 | PCM.DCSUM1 ---
Discharge Summary - Discharge Data Discharge Date: 06/14/20 Discharge Disposition: Home, Self-Care 01 Condition: Good - Referral to Home Health Primary Care Physician: Lisa Nickerson MD - Discharge Diagnosis/Problem(s) (1) 38 weeks gestation of SNOMED Code(s): 92045258 ICD Code: Z3A.38 - 38 WEEKS GESTATION OF Status: Acute Current Visit: Yes (2) growth restriction SNOMED Code(s): 26733551 ICD Code: JPS5846 - Status: Acute Current Visit: Yes (3) Premature atrial contractions of fetus affecting management of SNOMED Code(s): 129408760, 473075192 ICD Code: O36.8390 - MATERN CARE FOR ABNLT FETL HRT RATE OR RHYM, UNSP TRI, UNSP Status: Acute Current Visit: Yes (4) COVID-19 affecting in third trimester SNOMED Code(s): 636711780, 126152278 ICD Code: O98.513 - OTHER VIRAL DISEASES COMPLICATING , THIRD TRIMESTER; U07.1 - COVID-19 Status: Acute Current Visit: Yes (5) Vaginal delivery SNOMED Code(s): 584377752 ICD Code: O80 - ENCOUNTER FOR FULL-TERM UNCOMPLICATED DELIVERY Status: Acute Current Visit: No - Patient Summary/Data Complications: None Consults: None Recommended Follow-up Testing/Procedures: Follow up in 3 weeks for check Hospital Course: Patient is a 30 y/o at 38 2/7 wks who was brought for IOL for IUGR with baby measuring at 8th percentile. IOL done with pitocin and AROM. Progressed well to complete dilation. Underwent an uncomplicated . See delivery note. did well and was discharged home on PPD#2 - Patient Instructions Diet: Regular Diet as Tolerated Activity: As Tolerated Activity, Other: Pelvic Rest for 6 weeks Driving: May Drive Today Showering/Bathing: May Shower Showering/Bathing, Other: May Bathe Notify Provider of: Fever, Increased Pain, Swelling and Redness, Drainage, Nausea and/or Vomiting - Discharge Plan *PRESCRIPTION DRUG MONITORING PROGRAM REVIEWED*: No *COPY OF PRESCRIPTION DRUG MONITORING REPORT IN PATIENT MIGUEL: No Home Medications: Home Meds Pnv,Calcium 72/Iron/Folic Acid [ Plus Tablet] 1 tab PO DAILY 06/12/20 [History] Ibuprofen [Motrin] 600 mg PO Q6H PRN tablet 06/13/20 [Rx] Referrals: Lisa Nickerson MD [Primary Care Provider] - (3 weeks for check ) - Discharge Summary/Plan Comment DC Time >30 min.: No - Patient Data Vitals - Most Recent: Last Vital Signs Temp 36.5 C 06/14/20 03:16 Pulse 52 L 06/14/20 03:16 Resp 18 06/13/20 20:35 BP 104/60 06/14/20 03:16 Pulse Ox 99 06/14/20 03:16 Weight - Most Recent: 64.41 kg I&O - Last 24 hours: Intake & Output 06/13/20 06/13/20 06/14/20 14:59 22:59 06:59 Intake Total 400 0 Balance 400 0 Med Orders - Current: Current Medications Acetaminophen (Acetaminophen 325 Mg Tab) 650 mg PO Q4H PRN PRN Reason: mild pain or fever Last Admin: 06/13/20 14:28 Dose: 650 mg Documented by: Benzocaine/Menthol (Benzocaine/Menthol 20%-0.5% [place] 56 Gm Canister) 0 gm TOP ASDIRECTED PRN PRN Reason: Perineal Comfort Measure Last Admin: 06/12/20 21:05 Dose: 1 container Documented by: Ibuprofen (Ibuprofen 600 Mg Tab) 600 mg PO Q6H PRN PRN Reason: Mild pain or fever Last Admin: 06/13/20 23:24 Dose: 600 mg Documented by: Bernardino Moffett (Bernardino Moffett Medicated Pads 40/Jar) 1 pad TOP ASDIRECTED PRN PRN Reason: Perineal Comfort Measure Last Admin: 06/12/20 21:05 Dose: 1 tub Documented by: Discontinued Medications Ephedrine Sulfate (Ephedrine 50 Mg/Ml Sdv) 5 mg IVPUSH ASDIRECTED PRN PRN Reason: Hypotension Fentanyl (Fentanyl 100 Mcg/2 Ml Sdv) 100 mcg EPIDUR Q3H PRN PRN Reason: Pain Last Admin: 06/12/20 14:13 Dose: 100 mcg Documented by: Fentanyl/Bupivacaine HCl (Bupivacaine/Fentanyl/Ns 100 Ml Bag) 100 ml EPIDUR ASDIRECTED ERNESTINE Last Admin: 06/12/20 14:14 Dose: 100 ml Documented by: Oxytocin/Lactated Ringer's (Pitocin In Lr 10 Units/1,000 Ml) 10 unit in 1,000 mls @ 12 mls/hr IV TITRATE ERNESTINE; Protocol Last Titration: 06/12/20 16:39 Dose: 20 munits/min, 120 mls/hr Documented by: Oxytocin/Lactated Ringer's (Pitocin In Lr 10 Units/1,000 Ml) 10 unit in 1,000 mls @ 500 mls/hr IV .CONTINUOUS ERNESTINE Last Admin: 06/12/20 18:50 Dose: 500 mls/hr Documented by: Lactated Ringer's (Ringers, Lactated) 1,000 mls @ 40 mls/hr IV ASDIRECTED ERNESTINE Last Admin: 06/12/20 14:40 Dose: 40 mls/hr Documented by: Lidocaine/Epinephrine (Lidocaine 1.5% With Epinephrine 1:200,000 5 Ml Amp) 5 ml .ROUTE .[facility] ONE Stop: 06/12/20 20:01 Miscellaneous Medication (Phenylephrine Hcl In 0.9% Nacl 1 Mg/10 Ml Syringe) 0.1 mg IVPUSH Q10M PRN PRN Reason: Hypotension Nalbuphine HCl (Nalbuphine 10 Mg/1 Ml Vial) 10 mg IVPUSH Q2H PRN PRN Reason: Pain Ondansetron HCl (Ondansetron 4 Mg/2 Ml Sdv) 4 mg IVPUSH Q4H PRN PRN Reason: Nausea/Vomiting Last Admin: 06/12/20 14:51 Dose: 4 mg Documented by: Ondansetron HCl (Ondansetron 4 Mg/2 Ml Sdv) 4 mg IVPUSH ONETIME PRN PRN Reason: Nausea/Vomiting Sodium Chloride (Sodium Chloride 0.9% 10 Ml Syringe) 10 ml FLUSH ASDIRECTED PRN PRN Reason: Keep Vein Open
[2020-06-14 15:37] VITALS: BP 104/75; PULSE 76
== END 2020-06-14 12:10 | disposition home or self-care (01) | DRG 560 ==
LOC: JD.OB 06:57 → OBSVTOIN 18:25 → JD.OB 18:25
PROVIDERS: ADMIT Obstetrics & Gynecology; ATTEND Obstetrics & Gynecology
PROC: 10E0XZZ Delivery of Products of Conception, External Approach (ICD-10-PCS; principal; 2020-06-12)
PROC: 10907ZC Drainage of Amniotic Fluid, Therapeutic from Products of Conception, Via Natural or Artificial Opening (ICD-10-PCS; 2020-06-12)
PROC: 3E033VJ Introduction of Other Hormone into Peripheral Vein, Percutaneous Approach (ICD-10-PCS; 2020-06-12)
PROC: 0KQM0ZZ Repair Perineum Muscle, Open Approach (ICD-10-PCS; 2020-06-12)
PROC: 3E0R3BZ Introduction of Anesthetic Agent into Spinal Canal, Percutaneous Approach (ICD-10-PCS; 2020-06-12)
PROC: 00HU33Z Insertion of Infusion Device into Spinal Canal, Percutaneous Approach (ICD-10-PCS; 2020-06-12)
DX: O36.5930 Maternal care for other known or suspected poor fetal growth, third trimester, not applicable or unspecified (principal); Z37.0 Single live birth; O99.62 Diseases of the digestive system complicating childbirth; K21.9 Gastro-esophageal reflux disease without esophagitis; O70.1 Second degree perineal laceration during delivery; O69.1XX0 Labor and delivery complicated by cord around neck, with compression, not applicable or unspecified; O98.513 Other viral diseases complicating pregnancy, third trimester; U07.1 COVID-19; Z3A.38 38 weeks gestation of pregnancy
CPT/HCPCS: 01967; 36415; 51702; 59025; 59409; 85027; 86592; 86803; 86850; 86900; 86901; A9270-GY; J2405; J2590; J3010; J7120; U0002

== ENCOUNTER 2022-03-29 02:18 | Emergency (ER) | payer BC ==
[2022-03-29 02:30] VITALS: BP 108/72; PULSE 89
[2022-03-29] MEDS ORDERED: Dicyclomine 10 MG Cap PO ONE (02:41)
[2022-03-29] MEDS ORDERED: Sodium Chloride 0.9% 1,000 ML IV ONE (02:41)
[2022-03-29] MEDS ORDERED: Famotidine 20 MG/2 ML SDV IVPUSH ONE (02:41)
[2022-03-29] MEDS ORDERED: Ondansetron 4 MG/2 ML SDV IVPUSH ONE (02:41)
[2022-03-29] MEDS ORDERED: Sodium Chloride 0.9% 1,000 ML IV SCH (02:45)
== END 2022-03-29 04:15 | disposition home or self-care (01) ==
LOC: JD.ED 02:18
DX: R10.13 Epigastric pain (principal); R11.2 Nausea with vomiting, unspecified; R19.7 Diarrhea, unspecified; K21.9 Gastro-esophageal reflux disease without esophagitis; Z79.899 Other long term (current) drug therapy
CPT/HCPCS: 36415; 80053; 81001; 81025; 83690; 85025; 96374; 96375; 99284; A9270; J2405; J3490; J7030; 99283